=== PATIENT | male | born 1940 | race Caucasian/White ===

== ENCOUNTER → 2019-01-24 | Outpatient (CLI) | payer MEDICARE ==
--- NOTE | 2019-01-24 09:39 | XR ---
EXAMINATION TYPE: XR chest 2V DATE OF EXAM: 01/24/2019 COMPARISON: NONE TECHNIQUE: PA and lateral views submitted. HISTORY: Cough and congestion FINDINGS: Subsegmental changes at the left lung base. No overt failure. No pneumothorax. No pleural effusion. H eart size normal. Degenerative change of the spine. Hyperinflation suggests COPD. IMPRESSION: 1. Left basilar infiltrate or atelectasis correlate clinically.
== END | disposition home or self-care (01) ==
LOC: RADXRMAIN 08:58
PROVIDERS: ATTEND Family Medicine
DX: J20.9 Acute bronchitis, unspecified (principal)
CPT/HCPCS: 71046

== ENCOUNTER 2020-04-26 09:02 | Emergency (ER) | payer MEDICARE ==
[2020-04-26 09:13] VITALS: RESP 18; TEMP 98.3
[2020-04-26] MEDS ORDERED: DICYCLOMINE 10 MG/ML 2 ML AMP IM STA (09:27)
[2020-04-26] MEDS ORDERED: PANTOPRAZOLE 40 MG/10 ML VIAL IVP STA (09:27)
[2020-04-26 09:43] LABS: Basophils % (A) 1 %; Eosinophils # (A) 0.1 k/uL (0-0.7); Eosinophils % (A) 2 %; HCT 48.1 % (39.0-53.0); HGB 16.3 gm/dL (13.0-17.5); Lymphocytes # (A) 1.9 k/uL (1.0-4.8); Lymphocytes % (A) 26 %; MCH 30.9 pg (25.0-35.0); MCHC 33.8 g/dL (31.0-37.0); MCV 91.3 fL (80.0-100.0); Mean Platelet Volume 7.2; Monocytes # (A) 0.5 k/uL (0-1.0); Monocytes % (A) 7 %; Neutrophils # (A) 4.7 k/uL (1.3-7.7); Neutrophils % (A) 63 %; Platelet Count 238 k/uL (150-450); RBC 5.27 m/uL (4.30-5.90); RDW 12.7 % (11.5-15.5); WBC 7.5 k/uL (3.8-10.6)
[2020-04-26 09:52] LABS: ALT 25 U/L (4-49); AST 28 U/L (17-59); African American GFR (CKD) >90 (>60 ml/min/1.73 sqM); Albumin 4.4 g/dL (3.5-5.0); Alkaline Phosphatase 68 U/L (38-126); Amylase 34 U/L (30-110); Anion Gap 10 mmol/L; Blood Urea Nitrogen 15 mg/dL (9-20); Calcium 9.5 mg/dL (8.4-10.2); Carbon Dioxide 23 mmol/L (22-30); Chloride 108 mmol/L (98-107); Glucose 118 mg/dL (74-99); Lipase 41 U/L (23-300); Non-African American GFR(CKD) 81 (>60 ml/min/1.73 sqM); Potassium 4.1 mmol/L (3.5-5.1); Sodium 141 mmol/L (137-145); Total Bilirubin 0.9 mg/dL (0.2-1.3); Total Protein 7.7 g/dL (6.3-8.2)
[2020-04-26 09:54] LABS: Appearance,Urine Clear (Clear); Bilirubin,Urine Negative (Negative); Blood,Urine Negative (Negative); Color,Urine Yellow; Glucose,Urine (UA) Negative (Negative); Ketones,Urine Negative (Negative); Leukocyte Esterase,Urine Negative (Negative); Nitrite,Urine Negative (Negative); PH, Urine 6.5 (5.0-8.0); Protein,Urine Negative (Negative); Specific Gravity,Urine 1.013 (1.001-1.035); Urobilinogen,Urine <2.0 mg/dL (<2.0)
[2020-04-26 09:55] LABS: INR 1.1 (<1.2); Partial Thromboplastin Time 23.2 sec (22.0-30.0); Prothrombin Time 11.5 sec (9.0-12.0)
[2020-04-26 10:38] VITALS: BP 126/76
--- NOTE | 2020-04-26 10:38 | CT ---
EXAMINATION TYPE: CT abdomen pelvis w con DATE OF EXAM: 04/26/2020 COMPARISON: None. HISTORY: Left sided abdominal pain on and off x [address] DLP: 1201.3 mGycm, Automated Exposure Control for Dose Reduction was Utilized. CONTRAST: CT scan of the abdomen and pelvis is performed without oral but with IV Contrast, patient injected wi th 100 mL of Isovue 300. FINDINGS: LUNG BASES: Some calcified plaques in the bilateral lungs are present. Correlate clinically for prior asbestos exposure. Dependent atelectasis in both bases. Mild additional linear scarring and/or atele ctasis. Slightly elevated left hemidiaphragm. LIVER/GB: Liver heterogeneously hypodense suggesting mild diffuse fatty relation. A 1.3 cm thin-yarely d cysts left hepatic dome axial image 20 is noted. PANCREAS: No significant abnormality is seen. SPLEEN: No significant abnormality is seen. ADRENALS: No significant abnormality is seen. KIDNEYS: Symmetric cortical medullary uptake and excretion without hydronephrosis seen bilaterally. BOWEL: Suboptimal evaluation of bowel without enteric contrast. Stomach poorly distended and is thus suboptimally evaluated. No suspicious small or large bowel dilatation. Prominent diverticula on the l eft and sigmoid colon. Mild focal fat stranding left lower quadrant axial image 62 anteriorly. Findin g consistent with mild uncomplicated acute diverticulitis. PROSTATE/SEMINAL VESICLES: Enlarged prostate gland consistent with BPH. Central calcifications. [place] cent scattered pelvic phleboliths.. LYMPH NODES: No greater than 1cm abdominal or pelvic lymph nodes are appreciated. OSSEOUS STRUCTURES: Moderate disc space narrowing and vacuum disc phenomenon at lumbosacral junction. Mild to moderate axial joint space loss both hips. OTHER: Small fat-containing bilateral inguinal hernias. Mild calcified plaque distal abdominal aorta extending into iliac branch vessels. IMPRESSION: Prominent diverticulosis left and sigmoid colon. Mild focal uncomplicated acute diverticu litis at junction of left and sigmoid colon left lower quadrant anteriorly.
[2020-04-26 10:50] VITALS: PULSE 62
--- NOTE | 2020-04-26 10:53 | ED ---
General Adult HPI - General Chief complaint: Abdominal Pain Stated complaint: L Side Abd Pain Time Seen by Provider: 04/26/20 09:14 Source: patient, RN notes reviewed Mode of arrival: wheelchair Limitations: no limitations - History of Present Illness Initial comments: Patient is a pleasant 79-year-old male presenting to the emergency Department with complaints of abdominal discomfort. Onset of symptoms was several months ago, discomfort was much worse this morning. Discomfort does increase somewhat with positional changes. No nausea vomiting. No constipation or diarrhea. No fever. No history of symptoms prior to a few months ago. - Related Data Previous Rx's Medication Instructions Recorded Amoxic-Pot Clav 875-125Mg 1 tab PO BID 10 Days #20 tab 04/26/20 [Augmentin 875-125] Allergies Allergy/AdvReac Type Severity Reaction Status Date / Time No Known Allergies Allergy Verified 04/26/20 09:45 Review of Systems ROS Statement: Those systems with pertinent positive or pertinent negative responses have been documented in the HPI. ROS Other: All systems not noted in ROS Statement are negative. Constitutional: Denies: fever Eyes: Denies: eye pain ENT: Denies: ear pain Respiratory: Denies: cough Cardiovascular: Denies: chest pain Endocrine: Denies: fatigue Gastrointestinal: Reports: abdominal pain. Denies: nausea, vomiting Genitourinary: Denies: urgency Musculoskeletal: Denies: back pain Skin: Denies: rash Neurological: Denies: weakness Past Medical History Past Medical History: No Reported History History of Any Multi-Drug Resistant Organisms: None Reported Past Surgical History: No Surgical Hx Reported Additional Past Surgical History / Comment(s): vasectomy, last colonoscopy was 5 years ago without polyps. Past Anesthesia/Blood Transfusion Reactions: No Reported Reaction Past Psychological History: No Psychological Hx Reported Smoking Status: Former smoker Past Alcohol Use History: Occasional Past Drug Use History: None Reported - Past Family History Father Additional Family Medical History / Comment(s): Father at 47 when the patient was young of an unknown cause to him. Mother Additional Family Medical History / Comment(s): Mother in her 40s from complications of a urinary tract infection Brother(s) Additional Family Medical History / Comment(s): Patient had 8 brothers and 3 have passed. One from asbestos poisoning, one from an abdominal problem at age 86. One brother that is alive has a pacemaker. Sister(s) Additional Family Medical History / Comment(s): Patient had 3 sisters and one has passed. One sister that is alive has a pacemaker. Daughter(s) Additional Family Medical History / Comment(s): Patient has one daughter that is 47 years old with no major medical problems. General Exam Limitations: no limitations General appearance: alert, in no apparent distress Head exam: Present: normocephalic Eye exam: Present: normal appearance Neck exam: Present: normal inspection Respiratory exam: Present: normal lung sounds bilaterally Cardiovascular Exam: Present: regular rate, normal rhythm Expanded Peripheral pulses: 2+: Posterior Tibialis (R), Posterior Tibialis (L), Dorsalis Pedis (R), Dorsalis Pedis (L) GI/Abdominal exam: Present: soft, tenderness (Mild tenderness left lower quadrant), normal bowel sounds. Absent: distended, guarding, rebound, rigid, pulsatile mass Extremities exam: Present: normal inspection. Absent: pedal edema, calf tenderness Back exam: Absent: CVA tenderness (L) Neurological exam: Present: alert Psychiatric exam: Present: normal affect, normal mood Skin exam: Present: normal color Course Vital Signs 04/26/20 04/26/20 09:09 10:36 Temperature 98.3 F 98.3 F Pulse Rate 56 L 620 H Respiratory 18 18 Rate Blood Pressure 146/71 126/76 O2 Sat by Pulse 97 97 Oximetry Medical Decision Making - Medical Decision Making Patient reevaluated and resting comfortably in bed. Symptoms have improved. Patient updated on results and need for follow-up. Patient states she does have history of diverticulitis once previously. - Lab Data Result diagrams: 04/26/20 09:35 04/26/20 09:35 Lab Results 04/26/20 04/26/20 04/26/20 Range/Units 09:35 09:35 09:35 WBC 7.5 (3.8-10.6) k/uL RBC 5.27 (4.30-5.90) m/uL Hgb 16.3 (13.0-17.5) gm/dL Hct 48.1 (39.0-53.0) % MCV 91.3 (80.0-100.0) fL MCH 30.9 (25.0-35.0) pg MCHC 33.8 (31.0-37.0) g/dL RDW 12.7 (11.5-15.5) % Plt Count 238 (150-450) k/uL MPV 7.2 Neutrophils % 63 % Lymphocytes % 26 % Monocytes % 7 % Eosinophils % 2 % Basophils % 1 % Neutrophils # 4.7 (1.3-7.7) k/uL Lymphocytes # 1.9 (1.0-4.8) k/uL Monocytes # 0.5 (0-1.0) k/uL Eosinophils # 0.1 (0-0.7) k/uL Basophils # 0.0 (0-0.2) k/uL PT (9.0-12.0) sec INR (<1.2) APTT (22.0-30.0) sec Sodium 141 (137-145) mmol/L Potassium 4.1 (3.5-5.1) mmol/L Chloride 108 H (98-107) mmol/L Carbon Dioxide 23 (22-30) mmol/L Anion Gap 10 mmol/L BUN 15 (9-20) mg/dL Creatinine 0.89 (0.66-1.25) mg/dL Est GFR (CKD-EPI)AfAm >90 (>60 ml/min/1.73 sqM) Est GFR (CKD-EPI)NonAf 81 (>60 ml/min/1.73 sqM) Glucose 118 H (74-99) mg/dL Calcium 9.5 (8.4-10.2) mg/dL Total Bilirubin 0.9 (0.2-1.3) mg/dL AST 28 (17-59) U/L ALT 25 (4-49) U/L Alkaline Phosphatase 68 (38-126) U/L Total Protein 7.7 (6.3-8.2) g/dL Albumin 4.4 (3.5-5.0) g/dL Amylase 34 (30-110) U/L Lipase 41 (23-300) U/L Urine Color Yellow Urine Appearance Clear (Clear) Urine pH 6.5 (5.0-8.0) Ur Specific [place] 1.013 (1.001-1.035) Urine Protein Negative (Negative) Urine Glucose (UA) Negative (Negative) Urine Ketones Negative (Negative) Urine Blood Negative (Negative) Urine Nitrite Negative (Negative) Urine Bilirubin Negative (Negative) Urine Urobilinogen <2.0 (<2.0) mg/dL Ur Leukocyte Esterase Negative (Negative) 04/26/20 Range/Units 09:35 WBC (3.8-10.6) k/uL RBC (4.30-5.90) m/uL Hgb (13.0-17.5) gm/dL Hct (39.0-53.0) % MCV (80.0-100.0) fL MCH (25.0-35.0) pg MCHC (31.0-37.0) g/dL RDW (11.5-15.5) % Plt Count (150-450) k/uL MPV Neutrophils % % Lymphocytes % % Monocytes % % Eosinophils % % Basophils % % Neutrophils # (1.3-7.7) k/uL Lymphocytes # (1.0-4.8) k/uL Monocytes # (0-1.0) k/uL Eosinophils # (0-0.7) k/uL Basophils # (0-0.2) k/uL PT 11.5 (9.0-12.0) sec INR 1.1 (<1.2) APTT 23.2 (22.0-30.0) sec Sodium (137-145) mmol/L Potassium (3.5-5.1) mmol/L Chloride (98-107) mmol/L Carbon Dioxide (22-30) mmol/L Anion Gap mmol/L BUN (9-20) mg/dL Creatinine (0.66-1.25) mg/dL Est GFR (CKD-EPI)AfAm (>60 ml/min/1.73 sqM) Est GFR (CKD-EPI)NonAf (>60 ml/min/1.73 sqM) Glucose (74-99) mg/dL Calcium (8.4-10.2) mg/dL Total Bilirubin (0.2-1.3) mg/dL AST (17-59) U/L ALT (4-49) U/L Alkaline Phosphatase (38-126) U/L Total Protein (6.3-8.2) g/dL Albumin (3.5-5.0) g/dL Amylase (30-110) U/L Lipase (23-300) U/L Urine Color Urine Appearance (Clear) Urine pH (5.0-8.0) Ur Specific [place] (1.001-1.035) Urine Protein (Negative) Urine Glucose (UA) (Negative) Urine Ketones (Negative) Urine Blood (Negative) Urine Nitrite (Negative) Urine Bilirubin (Negative) Urine Urobilinogen (<2.0) mg/dL Ur Leukocyte Esterase (Negative) - Radiology Data Radiology results: report reviewed (Computed tomography scan shows mild acute diverticulitis) Disposition Clinical Impression: Diverticulitis Disposition: HOME SELF-CARE Condition: Stable Instructions (If sedation given, give patient instructions): Diverticulitis (ED) Additional Instructions: Please follow-up with primary care physician in the next couple of days for recheck. Return for fevers, uncontrolled vomiting, increased pain, worsening or changing symptoms or other concerns. Prescription for antibiotics has been sent your pharmacy, please fill and start this today. Raj on . Prescriptions: Amoxic-Pot Clav 875-125Mg [Augmentin 875-125] 1 tab PO BID 10 Days #20 tab Is patient prescribed a controlled substance at d/c from ED?: No Referrals: Hamilton Long DO [Primary Care Provider] - 1-2 days Time of Disposition: 10:52
== END 2020-04-26 11:00 | disposition home or self-care (01) ==
LOC: EC 09:02
DX: K57.32 Diverticulitis of large intestine without perforation or abscess without bleeding (principal); Z87.891 Personal history of nicotine dependence
CPT/HCPCS: 36415; 80053; 82150; 83690; 85025; 85610; 85730; 81003; 74177; 99284; 96372; 96374; J0500; C9113; Q9967

== ENCOUNTER 2021-12-14 23:32 | Emergency (ER) | payer MEDICARE ==
[2021-12-15] VITALS: RESP 18; TEMP 98.2
[2021-12-15] MEDS ORDERED: ONDANSETRON 4 MG/2 ML VIAL IVP STA (00:01)
[2021-12-15] MEDS ORDERED: ASPIRIN 81 MG PO STA (00:01)
[2021-12-15] MEDS ORDERED: SODIUM CHLORIDE 0.9% 1,000 ML IV STA (00:01)
[2021-12-15] MEDS ORDERED: MAG HYDROX/AL HYDROX/SIMETH 30 ML, HYOSCYAMINE ELIXIR 10 ML, LIDOCAINE VISCOUS 2% 10 ML PO STA ×3 (00:02)
--- NOTE | 2021-12-15 00:32 | ED ---
General Adult HPI - General Chief complaint: Chest Pain Stated complaint: Chest pain Time Seen by Provider: 12/14/21 23:57 Source: patient, RN notes reviewed, old records reviewed Mode of arrival: EMS Limitations: no limitations - History of Present Illness Initial comments: Patient is an 81-year-old male with past medical history remarkable for acid re flux who presents emergency Department complaining of a lower substernal chest burning sensation and epigastric pain. States he has had this pain previously. It became worse this evening when he lay down flat. States it improved when he sat up. It started approximately 2 hours prior to arrival. Denies any nausea. Denies any diarrhea. Denies any fevers, chills, cough. Denies any shortness of breath. Denies any upper chest pain. Patient is uncertain what is causing the current pain, but suspects his acid reflux. Presents for further evaluation at this time. No history cardiac disease, stents. Not on any home medications. States the pain is improved compared to earlier. - Related Data Previous Rx's Medication Instructions Recorded Amoxic-Pot Clav 875-125Mg 1 tab PO BID 10 Days #20 tab 04/26/20 [Augmentin 875-125] Mag Hydrox/Al Hydrox/Simeth 30 ml PO BID PRN #300 ml 12/15/21 [Maalox] Allergies Allergy/AdvReac Type Severity Reaction Status Date / Time No Known Allergies Allergy Verified 04/26/20 09:45 Review of Systems ROS Statement: Those systems with pertinent positive or pertinent negative responses have been documented in the HPI. Review of Systems: CONST: Denies fever EYES: Denies blurry vision ENT: Denies nasal congestion C/V: Endorses low substernal chest pain/epigastric pain. RESP: Denies shortness of breath GI: Endorses epigastric abdominal pain. : Denies dysuria SKIN: Denies rash. MSK: Denies joint pain. NEURO: Denies headache ROS Other: All systems not noted in ROS Statement are negative. Past Medical History Past Medical History: No Reported History History of Any Multi-Drug Resistant Organisms: None Reported Past Surgical History: No Surgical Hx Reported Additional Past Surgical History / Comment(s): vasectomy, last colonoscopy was 5 years ago without polyps. Past Anesthesia/Blood Transfusion Reactions: No Reported Reaction Past Psychological History: No Psychological Hx Reported Smoking Status: Former smoker Past Alcohol Use History: Occasional Past Drug Use History: None Reported - Past Family History Father Additional Family Medical History / Comment(s): Father at 47 when the patient was young of an unknown cause to him. Mother Additional Family Medical History / Comment(s): Mother in her 40s from complications of a urinary tract infection Brother(s) Additional Family Medical History / Comment(s): Patient had 8 brothers and 3 have passed. One from asbestos poisoning, one from an abdominal problem at age 86. One brother that is alive has a pacemaker. Sister(s) Additional Family Medical History / Comment(s): Patient had 3 sisters and one has passed. One sister that is alive has a pacemaker. Daughter(s) Additional Family Medical History / Comment(s): Patient has one daughter that is 47 years old with no major medical problems. General Exam - General Exam Comments Initial Comments: General: Appears in no acute distress. HEAD: Normal with no signs of head trauma. EYES: PERRLA, EOMI, conjunctiva normal, no discharge. ENT: Hearing grossly intact, normal oropharynx. RESPIRATORY: Clear breath sounds bilaterally. No wheezes, rales, or rhonchi. C/V: Regular rate and rhythm. S1 and S2 auscultated, no edema, peripheral pulses 2+ and intact throughout ABD: The pain patient is experiencing is reproduced when palpating his epig astric pain. No guarding. No rebound tenderness. No peritoneal signs. EXT: Normal range of motion, no obvious deformity SKIN: No rashes or lesions observed on exposed skin. NEURO: Alert and oriented 4. Limitations: no limitations Course Vital Signs 12/14/21 12/15/21 23:54 03:32 Temperature 98.2 F Pulse Rate 52 L 60 Respiratory 18 18 Rate Blood Pressure 143/70 150/86 O2 Sat by Pulse 95 96 Oximetry Medical Decision Making - Medical Decision Making Based on the patient's presentation and physical exam, I'm concerned for possible atypical ACS, however strong suspect this is acid reflux related with his past medical history. We'll obtain screening cardiac labs. We'll administer GI cocktail as well as an aspirin 324mg. He'll be given IV fluids. He was in agreement this plan. Vital signs are within normal limits. We'll continue to monitor on cardiac monitoring. EKG shows no signs of acute ischemia.Chest x-ray shows no acute cardio pulmonary process. Laboratory studies are remarkable for an undetectable troponin. Remainder of the labs are unremarkable. They're within normal limits. On reevaluation, vital signs remained within normal limits. Patient's symptoms completely resolved with the GI cocktail. He would like to go home. I believe this is reasonable. Heart score is low at 3. We discussed that his pain was likely related to his history of acid reflux. I will provide the patient with a prescription for Maalox. I instructed the patient to follow up with their PCP in the next 1-3 days. I explained that the patient should return to the emergency department if they experience any worsening symptoms. Strict return precautions were discussed with the patient. The patient expressed understanding of these instructions. I answered all questions that the patient had. The patient was discharged home in good condition with their prescriptions and follow up information. - Lab Data Result diagrams: 12/15/21 00:31 12/15/21 00:31 Lab Results 12/15/21 12/15/21 12/15/21 Range/Units 00:31 00:31 00:31 WBC 6.2 (3.8-10.6) k/uL RBC 4.71 (4.30-5.90) m/uL Hgb 14.3 (13.0-17.5) gm/dL Hct 43.0 (39.0-53.0) % MCV 91.2 (80.0-100.0) fL MCH 30.4 (25.0-35.0) pg MCHC 33.4 (31.0-37.0) g/dL RDW 12.3 (11.5-15.5) % Plt Count 218 (150-450) k/uL MPV 7.4 Neutrophils % 52 % Lymphocytes % 30 % Monocytes % 10 % Eosinophils % 3 % Basophils % 2 % Neutrophils # 3.2 (1.3-7.7) k/uL Lymphocytes # 1.9 (1.0-4.8) k/uL Monocytes # 0.6 (0-1.0) k/uL Eosinophils # 0.2 (0-0.7) k/uL Basophils # 0.1 (0-0.2) k/uL PT 11.7 (9.0-12.0) sec INR 1.1 (<1.2) APTT 24.8 (22.0-30.0) sec Sodium 138 (137-145) mmol/L Potassium 3.8 (3.5-5.1) mmol/L Chloride 107 (98-107) mmol/L Carbon Dioxide 22 (22-30) mmol/L Anion Gap 9 mmol/L BUN 13 (9-20) mg/dL Creatinine 0.88 (0.66-1.25) mg/dL Est GFR (CKD-EPI)AfAm >90 (>60 ml/min/1.73 sqM) Est GFR (CKD-EPI)NonAf 80 (>60 ml/min/1.73 sqM) Glucose 106 H (74-99) mg/dL Calcium 8.6 (8.4-10.2) mg/dL Magnesium 1.6 (1.6-2.3) mg/dL Total Bilirubin 0.3 (0.2-1.3) mg/dL AST 20 (17-59) U/L ALT 10 (4-49) U/L Alkaline Phosphatase 83 (38-126) U/L Troponin I (0.000-0.034) ng/mL Total Protein 6.9 (6.3-8.2) g/dL Albumin 3.9 (3.5-5.0) g/dL Amylase 36 (30-110) U/L Lipase 40 (23-300) U/L 12/15/21 Range/Units 00:31 WBC (3.8-10.6) k/uL RBC (4.30-5.90) m/uL Hgb (13.0-17.5) gm/dL Hct (39.0-53.0) % MCV (80.0-100.0) fL MCH (25.0-35.0) pg MCHC (31.0-37.0) g/dL RDW (11.5-15.5) % Plt Count (150-450) k/uL MPV Neutrophils % % Lymphocytes % % Monocytes % % Eosinophils % % Basophils % % Neutrophils # (1.3-7.7) k/uL Lymphocytes # (1.0-4.8) k/uL Monocytes # (0-1.0) k/uL Eosinophils # (0-0.7) k/uL Basophils # (0-0.2) k/uL PT (9.0-12.0) sec INR (<1.2) APTT (22.0-30.0) sec Sodium (137-145) mmol/L Potassium (3.5-5.1) mmol/L Chloride (98-107) mmol/L Carbon Dioxide (22-30) mmol/L Anion Gap mmol/L BUN (9-20) mg/dL Creatinine (0.66-1.25) mg/dL Est GFR (CKD-EPI)AfAm (>60 ml/min/1.73 sqM) Est GFR (CKD-EPI)NonAf (>60 ml/min/1.73 sqM) Glucose (74-99) mg/dL Calcium (8.4-10.2) mg/dL Magnesium (1.6-2.3) mg/dL Total Bilirubin (0.2-1.3) mg/dL AST (17-59) U/L ALT (4-49) U/L Alkaline Phosphatase (38-126) U/L Troponin I <0.012 (0.000-0.034) ng/mL Total Protein (6.3-8.2) g/dL Albumin (3.5-5.0) g/dL Amylase (30-110) U/L Lipase (23-300) U/L - EKG Data -: EKG Interpreted by Me EKG Comments: 12-lead Electrocardiogram Interpretation Note EKG was reviewed and interpreted by myself. 12-lead ECG performed at 0007 is interpreted by me as revealing sinus bradycardia at a rate of 52 beats per minute. Taylors is normal. DC interval is 234 ms and prolonged, QRS duration is 87 ms, QTc is 442 ms.. There were no acute ST or T wave abnormalities to suggest myocardial ischemia or injury. There is an isolated T-wave inversion in lead III. R wave progression across the precordium was satisfactory. By my interpretation this EKG is non-diagnostic for acute ischemia. Disposition Clinical Impression: Acid reflux, Atypical chest pain Disposition: HOME SELF-CARE Condition: Good Instructions (If sedation given, give patient instructions): Chest Pain (ED), GERD (Gastroesophageal Reflux Disease) in Children (ED) Prescriptions: Mag Hydrox/Al Hydrox/Simeth [Maalox] 30 ml PO BID PRN #300 ml PRN Reason: Dyspepsia Is patient prescribed a controlled substance at d/c from ED?: No Referrals: [place], DO [Primary Care Provider] - 1-2 days Time of Disposition: 02:25
[2021-12-15 00:47] LABS: Basophils # (A) 0.1 k/uL (0-0.2); Basophils % (A) 2 %; Eosinophils # (A) 0.2 k/uL (0-0.7); Eosinophils % (A) 3 %; HGB 14.3 gm/dL (13.0-17.5); Lymphocytes # (A) 1.9 k/uL (1.0-4.8); Lymphocytes % (A) 30 %; MCH 30.4 pg (25.0-35.0); MCHC 33.4 g/dL (31.0-37.0); MCV 91.2 fL (80.0-100.0); Mean Platelet Volume 7.4; Monocytes # (A) 0.6 k/uL (0-1.0); Monocytes % (A) 10 %; Neutrophils # (A) 3.2 k/uL (1.3-7.7); Neutrophils % (A) 52 %; Platelet Count 218 k/uL (150-450); RBC 4.71 m/uL (4.30-5.90); RDW 12.3 % (11.5-15.5); WBC 6.2 k/uL (3.8-10.6)
[2021-12-15 00:57] LABS: INR 1.1 (<1.2); Partial Thromboplastin Time 24.8 sec (22.0-30.0); Prothrombin Time 11.7 sec (9.0-12.0)
[2021-12-15 01:22] LABS: ALT 10 U/L (4-49); AST 20 U/L (17-59); African American GFR (CKD) >90 (>60 ml/min/1.73 sqM); Albumin 3.9 g/dL (3.5-5.0); Alkaline Phosphatase 83 U/L (38-126); Amylase 36 U/L (30-110); Anion Gap 9 mmol/L; Blood Urea Nitrogen 13 mg/dL (9-20); Calcium 8.6 mg/dL (8.4-10.2); Carbon Dioxide 22 mmol/L (22-30); Chloride 107 mmol/L (98-107); Glucose 106 mg/dL (74-99); Lipase 40 U/L (23-300); Magnesium 1.6 mg/dL (1.6-2.3); Non-African American GFR(CKD) 80 (>60 ml/min/1.73 sqM); Potassium 3.8 mmol/L (3.5-5.1); Sodium 138 mmol/L (137-145); Total Bilirubin 0.3 mg/dL (0.2-1.3); Total Protein 6.9 g/dL (6.3-8.2)
--- NOTE | 2021-12-15 02:02 | XR ---
EXAMINATION TYPE: XR chest 2V DATE OF EXAM: 12/15/2021 COMPARISON: NONE HISTORY: Chest pain TECHNIQUE: 2 views FINDINGS: Heart is normal. Lungs are clear of infiltrate. No pleural effusion. There are no hilar mas ses. Costophrenic angles are clear. There is some minimal reticular density in the lower lung latif that could be scarring. No heart failure. IMPRESSION: No active cardiopulmonary disease. Normal heart. Overall no adverse change compared to ol d exam.
[2021-12-15 03:33] VITALS: BP 150/86; PULSE 60
== END 2021-12-15 03:33 | disposition home or self-care (01) ==
LOC: EC 23:32
DX: K21.9 Gastro-esophageal reflux disease without esophagitis (principal); Z87.891 Personal history of nicotine dependence
CPT/HCPCS: 36415; 93005; 80053; 82150; 83690; 83735; 84484; 85025; 85610; 85730; 71046; 99285; 96374; 96361; J2405

== ENCOUNTER 2023-08-12 13:40 | Emergency (ER) | payer MEDICARE ==
--- NOTE | 2023-08-12 13:47 | ED ---
Neuro HPI - General Chief Complaint: Neuro Symptoms/Deficit Stated Complaint: AMS Time Seen by Provider: 08/12/23 13:45 Source: patient, RN notes reviewed, old records reviewed Mode of arrival: ambulatory Limitations: no limitations - History of Present Illness Is the patient presenting with stroke symptoms?: Yes -: hour(s) Initial Comments: This is a 83-year-old male who presents with symptoms of inability to speak. Patient is unable to provide any current history of current symptoms. Patient has difficulty both expressing and receiving information he was able to write on a piece of paper that he started noticing the symptoms around 11 Location: speech, dysarthria History of same: No Place: home Severity: severe Improves With: none Worsens With: none Context: sudden onset Associated Symptoms: confusion - Related Data Home Medications: Home Medications Medication Instructions Recorded Confirmed No Known Home Medications 08/12/23 08/12/23 Allergies/Adverse Reactions: Allergies Allergy/AdvReac Type Severity Reaction Status Date / Time No Known Allergies Allergy Verified 08/12/23 14:29 Review of Systems ROS Statement: Those systems with pertinent positive or pertinent negative responses have been documented in the HPI. ROS Other: All systems not noted in ROS Statement are negative. General Exam - General Exam Comments Initial Comments: Patient has significant expressive aphasia and receptive Limitations: no limitations General appearance: alert, in no apparent distress Head exam: Present: atraumatic, normocephalic, normal inspection Eye exam: Present: normal appearance, PERRL, EOMI. Absent: scleral icterus, conjunctival injection, periorbital swelling ENT exam: Present: normal exam, mucous membranes moist Neck exam: Present: normal inspection. Absent: tenderness, meningismus, lymphadenopathy Respiratory exam: Present: normal lung sounds bilaterally. Absent: respiratory distress, wheezes, rales, rhonchi, stridor Cardiovascular Exam: Present: regular rate, normal rhythm, normal heart sounds. Absent: systolic murmur, diastolic murmur, rubs, gallop, clicks GI/Abdominal exam: Present: soft, normal bowel sounds. Absent: distended, tenderness, guarding, rebound, rigid Extremities exam: Present: normal inspection, full ROM, normal capillary refill. Absent: tenderness, pedal edema, joint swelling, calf tenderness Back exam: Present: normal inspection Neurological exam: Present: alert, oriented X3, CN II-XII intact Psychiatric exam: Present: normal affect, normal mood Skin exam: Present: warm, dry, intact, normal color. Absent: rash Stroke MDM - Lab Data Result diagrams: 08/12/23 13:57 08/12/23 13:57 Lab Results 08/12/23 08/12/23 08/12/23 Range/Units 13:48 13:57 13:57 WBC 7.9 (3.8-10.6) k/uL RBC 4.69 (4.30-5.90) m/uL Hgb 14.4 (13.0-17.5) gm/dL Hct 43.0 (39.0-53.0) % MCV 91.8 (80.0-100.0) fL MCH 30.7 (25.0-35.0) pg MCHC 33.5 (31.0-37.0) g/dL RDW 12.5 (11.5-15.5) % Plt Count 275 (150-450) k/uL MPV 7.5 Neutrophils % 62 % Lymphocytes % 25 % Monocytes % 9 % Eosinophils % 1 % Basophils % 1 % Neutrophils # 4.9 (1.3-7.7) k/uL Lymphocytes # 2.0 (1.0-4.8) k/uL Monocytes # 0.7 (0-1.0) k/uL Eosinophils # 0.1 (0-0.7) k/uL Basophils # 0.1 (0-0.2) k/uL PT 11.8 (10.0-12.5) sec INR 1.1 (<1.2) APTT 24.5 (22.0-30.0) sec Sodium (137-145) mmol/L Potassium (3.5-5.1) mmol/L Chloride (98-107) mmol/L Carbon Dioxide (22-30) mmol/L Anion Gap mmol/L BUN (9-20) mg/dL Creatinine (0.66-1.25) mg/dL Est GFR (CKD-EPI)AfAm (>60 ml/min/1.73 sqM) Est GFR (CKD-EPI)NonAf (>60 ml/min/1.73 sqM) Glucose (74-99) mg/dL POC Glucose (mg/dL) 108 (70-110) mg/dL POC Glu [employer] Operations Officer ID Rothman, [place] Calcium (8.4-10.2) mg/dL Total Bilirubin (0.2-1.3) mg/dL AST (17-59) U/L ALT (4-49) U/L Alkaline Phosphatase (38-126) U/L Creatine Kinase (55-170) U/L Troponin I (0.000-0.034) ng/mL Total Protein (6.3-8.2) g/dL Albumin (3.5-5.0) g/dL 08/12/23 08/12/23 Range/Units 13:57 13:57 WBC (3.8-10.6) k/uL RBC (4.30-5.90) m/uL Hgb (13.0-17.5) gm/dL Hct (39.0-53.0) % MCV (80.0-100.0) fL MCH (25.0-35.0) pg MCHC (31.0-37.0) g/dL RDW (11.5-15.5) % Plt Count (150-450) k/uL MPV Neutrophils % % Lymphocytes % % Monocytes % % Eosinophils % % Basophils % % Neutrophils # (1.3-7.7) k/uL Lymphocytes # (1.0-4.8) k/uL Monocytes # (0-1.0) k/uL Eosinophils # (0-0.7) k/uL Basophils # (0-0.2) k/uL PT (10.0-12.5) sec INR (<1.2) APTT (22.0-30.0) sec Sodium 140 (137-145) mmol/L Potassium 3.5 (3.5-5.1) mmol/L Chloride 108 H (98-107) mmol/L Carbon Dioxide 22 (22-30) mmol/L Anion Gap 10 mmol/L BUN 17 (9-20) mg/dL Creatinine 0.84 (0.66-1.25) mg/dL Est GFR (CKD-EPI)AfAm >90 (>60 ml/min/1.73 sqM) Est GFR (CKD-EPI)NonAf 81 (>60 ml/min/1.73 sqM) Glucose 120 H (74-99) mg/dL POC Glucose (mg/dL) (70-110) mg/dL POC Glu [employer] Officer ID Calcium 9.0 (8.4-10.2) mg/dL Total Bilirubin 0.8 (0.2-1.3) mg/dL AST 23 (17-59) U/L ALT 19 (4-49) U/L Alkaline Phosphatase 93 (38-126) U/L Creatine Kinase 89 (55-170) U/L Troponin I <0.012 (0.000-0.034) ng/mL Total Protein 7.3 (6.3-8.2) g/dL Albumin 4.2 (3.5-5.0) g/dL - NIH Stroke Scale 1b. LOC Questions: (2) answers no questions correctly 1c. LOC Commands: (0) performs tasks correctly 2. Best Gaze: (0) normal 3. Visual: (0) no visual loss 4. Facial Palsy: (0) normal symmetrical movement 5a. Motor Arm Left: (0) no drift 5b. Motor Arm Right: (0) no drift 6a. Motor Leg Left: (0) no drift 6b. Motor Leg Right: (0) no drift 7. Limb Ataxia: (0) absent 8. Sensory: (0) normal 9. Best Language: (2) severe aphasia 10. Dysarthria: (1) mild/moderate dysarthria 11. Extinction/Inattention: (0) no abnormality - Thrombolytic Inclusion/Exclusion Thrombolytic Inclusion Criteria: Symptom Onset < 4.5 h - Medical Decision Making 83 male transferred for inpatient neuro interventionalists, patient does have in tracerebral hemorrhage - Radiology Data Radiology results: report reviewed (CT brain is positive for left intraparenchymal hemorrhage), image reviewed - EKG Data -: EKG Interpreted by Me (EKG is sinus 64 AL 180 QRS 100 QTc 427) Past Medical History Past Medical History: No Reported History History of Any Multi-Drug Resistant Organisms: None Reported Past Surgical History: No Surgical Hx Reported Additional Past Surgical History / Comment(s): vasectomy, last colonoscopy was 5 years ago without polyps. Past Anesthesia/Blood Transfusion Reactions: No Reported Reaction Past Psychological History: No Psychological Hx Reported Smoking Status: Former smoker Past Alcohol Use History: Occasional Past Drug Use History: None Reported - Past Family History Father Additional Family Medical History / Comment(s): Father at 47 when the patient was young of an unknown cause to him. Mother Additional Family Medical History / Comment(s): Mother in her 40s from complications of a urinary tract infection Brother(s) Additional Family Medical History / Comment(s): Patient had 8 brothers and 3 have passed. One from asbestos poisoning, one from an abdominal problem at age 86. One brother that is alive has a pacemaker. Sister(s) Additional Family Medical History / Comment(s): Patient had 3 sisters and one has passed. One sister that is alive has a pacemaker. Daughter(s) Additional Family Medical History / Comment(s): Patient has one daughter that is 47 years old with no major medical problems. Course Vital Signs 08/12/23 08/12/23 08/12/23 13:41 13:48 14:12 Temperature 97.7 F Pulse Rate 69 71 76 Respiratory 16 18 16 Rate Blood Pressure 80/48 126/92 149/87 O2 Sat by Pulse 98 97 94 L Oximetry 08/12/23 08/12/23 08/12/23 14:15 14:30 14:45 Temperature Pulse Rate 69 82 70 Respiratory 18 18 18 Rate Blood Pressure 149/87 150/82 155/91 O2 Sat by Pulse 98 98 98 Oximetry 08/12/23 08/12/23 08/12/23 15:00 15:11 15:15 Temperature Pulse Rate 64 66 71 Respiratory 18 18 18 Rate Blood Pressure 143/76 144/91 143/92 O2 Sat by Pulse 98 97 98 Oximetry 08/12/23 15:28 Temperature 97.6 F Pulse Rate 68 Respiratory 18 Rate Blood Pressure 130/98 O2 Sat by Pulse 98 Oximetry - Reevaluation(s) Reevaluation #1: 08/12/23 14:29 Records reviewed Code thrombolytic paged on patient arrival Reevaluation #2: 08/12/23 14:30 Patient informed of results but unable to understand Reevaluation #3: 08/12/23 14:30 Patient has no change in symptoms here in the ER Reevaluation #4: Was pt. sent in by a medical professional or institution (, PA, [employer], urgent care, hospital, or usp...) When possible be specific @ -no Did you speak to anyone other than the patient for history (EMS, parent, family, police, friend...)? What history was obtained from this source @ -no Did you review nursing and triage notes (agree or disagree)? Why? @ -agree Are old charts reviewed (outside hosp., previous admission, EMS record, old EKG, old radiological studies, urgent care reports/EKG's, usp records)? Report findings @ -yes Differential Diagnosis (chest pain, altered mental status, abdominal pain women, abdominal pain men, vaginal bleeding, weakness, fever, dyspnea, syncope, headache, dizziness, GI bleed, back pain, seizure, CVA, palpatations, mental health, musculoskeletal)? @ -prior EKG interpreted by me (3pts min.). @ -yes X-rays interpreted by me (1pt min.). @ -yes negative for acute disease CT interpreted by me (1pt min.). @ -Yes positive for intracranial hemorrhage U/S interpreted by me (1pt. min.). @ -no What testing was considered but not performed or refused? (CT, X-rays, U/S, labs)? Why? @ -none What meds were considered but not given or refused? Why? @ -none Did you discuss the management of the patient with other professionals (professionals i.e. , PA, [employer], lab, RT, psych nurse, transition social worker, endless bed drum sander, teacher, plain clothes police officer, community case manager)? Give summary @ -no Was smoking cessation discussed for >3mins.? @ -no Was critical care preformed (if so, how long)? @ -yes31 Were there social determinants of health that impacted care today? How? (Homelessness, low income, unemployed, alcoholism, drug addiction, transportation, low edu. Level, literacy, decrease access to med. care, alf, r ehab)? @ -none Was there de-escalation of care discussed even if they declined (Discuss DNR or withdrawal of care, Hospice)? DNR status @ -no What co-morbidities impacted this encounter? (DM, HTN, Smoking, COPD, CAD, Cancer, CVA, ARF, Chemo, Hep., AIDS, mental health diagnosis, sleep apnea, morbid obesity)? @ -none Was patient admitted / discharged? Hospital course, mention meds given and route , prescriptions, significant lab abnormalities, going to OR and other pertinent info. @ - 83 male transferred for inpatient neuro interventionalists, patient does have intracerebral hemorrhage Transferred Admitted to inpatient Undiagnosed new problem with uncertain prognosis? @ -no Drug Therapy requiring intensive monitoring for toxicity (Heparin, Nitro, Insulin, Cardizem)? @ -no Were any procedures done? @ -no Diagnosis/symptom? @ -Intracranial hemorrhage Acute, or Chronic, or Acute on Chronic? @ -Acute Uncomplicated (without systemic symptoms) or Complicated (systemic symptoms)? @ -Complicated Side effects of treatment? @ -no Exacerbation, Progression, or Severe Exacerbation? @ -exacerbation Poses a threat to life or bodily function? How? (Chest pain, USA, ND, pneumonia, PE, COPD, DKA, ARF, appy, cholecystitis, CVA, Diverticulitis, Homicidal, Suicidal, threat to staff... and all critical care pts) @ -yes with significant intracranial hemorrhage Reevaluation #5: Differential CVA Ischemic stroke, hemorrhagic stroke, brain tumor, atypical migraine, Wernicke's encephalopathy, seizure, multiple sclerosis, meningitis, encephalitis, hypoglycemia, Guillain-Combs, electrolytes disturbance, myasthenia gravis.... This is not meant to be an all-inclusive list - Consultations Consultation #1: Spoke with neuro interventionalists, they accept transfer the patient Critical Care Time Critical Care Time: Yes Total Critical Care Time: 31 Disposition Clinical Impression: Intracranial hemorrhage, Intraparenchymal hemorrhage of brain, Left-sided intracerebral hemorrhage, Subarachnoid bleed Disposition: OTHER INSTITUTION NOT DEFINED Condition: Critical Is patient prescribed a controlled substance at d/c from ED?: No Referrals: Hamilton Long DO [Primary Care Provider] - 1-2 days Time of Disposition: 14:40 - Out of Hospital Transfer - Req. Specs Out of Hospital Transfer - Requested Specifics: Other Emergency Center ([facility])
[2023-08-12 13:49] LABS: Glucose,Whole Blood 108 mg/dL (70-110)
--- NOTE | 2023-08-12 14:20 | CT ---
EXAMINATION TYPE: CT brain wo con CT DLP: 1129.6 mGycm, Automated exposure control for dose reduction was used. DATE OF EXAM: 08/12/2023 2:13 PM COMPARISON: 09/03/2015. CLINICAL INDICATION:Male, 83 years old with history of Neuro deficit, acute, stroke suspected, diffic ulty with speech. neuro deficit TECHNIQUE: Brain: Axial CT images of the brain were obtained with coronal and sagittal reformats created and rev iewed. Contrast used: None. Oral contrast used: None. FINDINGS: Brain: Extra-axial spaces: Curvilinear fluid within the sulci within this region also present series 203 [id number] [id number]. Ventricular system: Within normal limits Cerebral parenchyma: Left posterior frontal/parietal/temporal intraparenchymal hemorrhage r measuring 31 x 21 x 24 mm. No acute intraparenchymal hemorrhage or mass effect. The jansen-white junction is we ll differentiated. Cerebellum: Unremarkable. Mass effect: No evidence of midline shift. Intracranial vasculature: unremarkable Soft tissues: Normal. Calvarium/osseous structures: No depressed skull fracture. Paranasal sinuses and mastoid air cells: Moderate mucosal thickening most proximal of the maxillary s inuses. Scattered paranasal sinus disease. Visualized orbits: Bilaterally aphakia. IMPRESSION: Acute left posterior frontal/parietal/temporal region intraparenchymal hemorrhage with trace subarach noid hemorrhage also visualized.. Findings communicated to Dr. Amadou Heath DO on 08/12/2023 2:[address] Nathan Alegria.
[2023-08-12 14:21] LABS: Basophils # (A) 0.1 k/uL (0-0.2); Basophils % (A) 1 %; Eosinophils # (A) 0.1 k/uL (0-0.7); Eosinophils % (A) 1 %; HGB 14.4 gm/dL (13.0-17.5); Lymphocytes % (A) 25 %; MCH 30.7 pg (25.0-35.0); MCHC 33.5 g/dL (31.0-37.0); MCV 91.8 fL (80.0-100.0); Mean Platelet Volume 7.5; Monocytes # (A) 0.7 k/uL (0-1.0); Monocytes % (A) 9 %; Neutrophils # (A) 4.9 k/uL (1.3-7.7); Neutrophils % (A) 62 %; Platelet Count 275 k/uL (150-450); RBC 4.69 m/uL (4.30-5.90); RDW 12.5 % (11.5-15.5); WBC 7.9 k/uL (3.8-10.6)
[2023-08-12] MEDS: T.ENECTEPLASE 5 MG/ML VIAL IVP STA (14:22)
[2023-08-12] MEDS: SODIUM CHLORIDE 0.9% 1,000 ML IV STA ×2 (14:25→14:26)
[2023-08-12 14:27] LABS: INR 1.1 (<1.2); Partial Thromboplastin Time 24.5 sec (22.0-30.0); Prothrombin Time 11.8 sec (10.0-12.5)
[2023-08-12 14:33] LABS: ALT 19 U/L (4-49); AST 23 U/L (17-59); African American GFR (CKD) >90 (>60 ml/min/1.73 sqM); Albumin 4.2 g/dL (3.5-5.0); Alkaline Phosphatase 93 U/L (38-126); Anion Gap 10 mmol/L; Blood Urea Nitrogen 17 mg/dL (9-20); Carbon Dioxide 22 mmol/L (22-30); Chloride 108 mmol/L (98-107); Creatine Kinase 89 U/L (55-170); Glucose 120 mg/dL (74-99); Non-African American GFR(CKD) 81 (>60 ml/min/1.73 sqM); Potassium 3.5 mmol/L (3.5-5.1); Sodium 140 mmol/L (137-145); Total Bilirubin 0.8 mg/dL (0.2-1.3); Total Protein 7.3 g/dL (6.3-8.2)
--- NOTE | 2023-08-12 14:44 | CT ---
EXAMINATION TYPE: CT angio head neck CT DLP: 533.9 mGycm, Automated exposure control for dose reduction was used. DATE OF EXAM: 08/12/2023 2:34 PM COMPARISON: None. CLINICAL INDICATION:Male, 83 years old with history of Neuro deficit, acute, stroke suspected; PHH, d ifficulty with speech. neuro deficit TECHNIQUE: Axially acquired helical CT angiogram of the head and neck was obtained with contrast. Axi al images are supplemented with 3D reconstructions and MIP images which were post-processed at an in dependent workstation. NASCET criteria used. Contrast used:65ml mL of Isovue 370 with IV Contrast, Oral contrast used: None. FINDINGS: CTA HEAD: No evidence of acute intracranial hemorrhage, mass effect, or midline shift. The ventricles, sulci, a nd cisterns are unremarkable. The visualized portions of the internal carotid arteries, middle cerebral arteries, anterior cerebral arteries, and posterior cerebral arteries are patent. Atherosclerosis of the intracranial internal c arotid arteries. The basilar and vertebral arteries are patent. CTA NECK: Right Carotid System: The common carotid artery and external carotid artery are patent. The carotid bifurcation demonstrate s no evidence of hemodynamically significant stenosis. The remaining portions of the internal carotid artery demonstrate normal size without significant narrowing. Left Carotid System: The common carotid artery and external carotid artery are patent. The carotid bifurcation demonstrate s no evidence of hemodynamically significant stenosis. The remaining portions of the internal carotid artery demonstrate normal size without significant narrowing. Vertebral arteries are patent without evidence hemodynamically significant stenosis. There is a three-vessel aortic arch. The origins of the great vessels are patent. No evidence of hemo dynamically significant stenosis. Upper thorax: IMPRESSION: 1. No evidence of dissection of the cervical internal carotid arteries or vertebral arteries or any e vidence of significant stenosis at the carotid bifurcations. 2. No evidence of intracranial high-grade stenosis or intracranial aneurysm.
[2023-08-12] MEDS: CLEVIDIPINE BUTYRATE 25 MG in EMPTY BAG 1 BAG IV SCH (15:07)
--- NOTE | 2023-08-12 15:08 | XR ---
EXAMINATION TYPE: XR chest 2V DATE OF EXAM: 08/12/2023 COMPARISON: NONE TECHNIQUE: PA and lateral views submitted. HISTORY: Altered mental status FINDINGS: The lungs are clear and there is no pneumothorax, pleural effusion, or focal pneumonia. Heart size normal and no overt failure. Osseous structures demonstrate hypertrophic and degenerative changes of the spine. Subsegmental changes involving the lung bases. Coarsened interstitium. Biapical pleural th ickening. Arthropathy of the shoulders. Limited inspiration. IMPRESSION: 1. Coarsened interstitial may be related to reduced inspiration. Correlate clinically to exclude a br onchitis and interstitial lung disease. 2. Left basilar atelectasis.
[2023-08-12 15:18] VITALS: RESP 18
[2023-08-12 15:59] VITALS: BP 130/98; PULSE 68; TEMP 97.6
== END 2023-08-12 15:30 | disposition other institution (70) ==
LOC: EC 13:40
DX: I61.9 Nontraumatic intracerebral hemorrhage, unspecified (principal); I63.9 Cerebral infarction, unspecified; Z87.891 Personal history of nicotine dependence
CPT/HCPCS: 99291 ×2; 96361 ×3; 96374; 96365; 36415; 93005; 80053; 82550; 84484; 85025; 85610; 85730; 71046; 70496; 70450; 70498; C9248; Q9967

== ENCOUNTER 2024-10-09 18:31 | Inpatient (IN) | payer MEDICARE ==
--- NOTE | 2024-10-09 19:14 | ED ---
General Adult HPI - General Source: patient, family, RN notes reviewed Mode of arrival: EMS Limitations: no limitations <Jerry Kerns - Last Filed: 10/09/24 21:48> <Florecita Oro - Last Filed: 10/10/24 06:18> - General Chief complaint: Back Pain/Injury Stated complaint: Back Pain Time Seen by Provider: 10/09/24 18:47 - History of Present Illness Initial comments: Patient is an 84-year-old male presents emergency department with concerns with back pain. Patient did have a fall a couple days ago. Patient did call EMS at the time however sent them away because he felt he was doing fine. Symptoms have worsened over the last couple of days. Discomfort increases with movement. Patient fell and landed on his lower back. Niece is present and also has concern for some increasing confusion. 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 Patient did not recall his name when EMS came out. (Jerry Kerns) - Related Data Home Medications Medication Instructions Recorded Confirmed No Known Home Medications 08/12/23 08/12/23 Allergies Allergy/AdvReac Type Severity Reaction Status Date / Time No Known Allergies Allergy Verified 10/09/24 18:45 Review of Systems ROS Other: All systems not noted in ROS Statement are negative. Constitutional: Denies: fever Eyes: Denies: eye pain ENT: Denies: ear pain Respiratory: Denies: dyspnea Cardiovascular: Denies: chest pain Gastrointestinal: Denies: abdominal pain Musculoskeletal: Reports: as per HPI, back pain Neurological: Reports: as per HPI, confusion. Denies: headache, weakness <Jerry Kerns - Last Filed: 10/09/24 21:48> ROS Other: All systems not noted in ROS Statement are negative. <Florecita Oro - Last Filed: 10/10/24 06:18> ROS Statement: Those systems with pertinent positive or pertinent negative responses have been documented in the HPI. Past Medical History Past Medical History: CVA/TIA History of Any Multi-Drug Resistant Organisms: None Reported Past Surgical History: No Surgical Hx Reported Additional Past Surgical History / Comment(s): vasectomy, last colonoscopy was 5 years ago without polyps. Past Anesthesia/Blood Transfusion Reactions: No Reported Reaction Past Psychological History: No Psychological Hx Reported Smoking Status: Former smoker Past Alcohol Use History: Occasional Past Drug Use History: None Reported - Past Family History Father Additional Family Medical History / Comment(s): Father at 47 when the patient was young of an unknown cause to him. Mother Additional Family Medical History / Comment(s): Mother in her 40s from complications of a urinary tract infection Brother(s) Additional Family Medical History / Comment(s): Patient had 8 brothers and 3 have passed. One from asbestos poisoning, one from an abdominal problem at age 86. One brother that is alive has a pacemaker. Sister(s) Additional Family Medical History / Comment(s): Patient had 3 sisters and one has passed. One sister that is alive has a pacemaker. Daughter(s) Additional Family Medical History / Comment(s): Patient has one daughter that is 47 years old with no major medical problems. <Jerry Kerns - Last Filed: 10/09/24 21:48> General Exam Limitations: no limitations General appearance: alert, in no apparent distress Head exam: Present: normocephalic Eye exam: Present: normal appearance Neck exam: Present: normal inspection. Absent: tenderness Respiratory exam: Present: normal lung sounds bilaterally Cardiovascular Exam: Present: regular rate, normal rhythm GI/Abdominal exam: Present: soft. Absent: tenderness, pulsatile mass Extremities exam: Present: normal inspection, full ROM. Absent: tenderness Back exam: Present: tenderness (Moderate diffuse lumbar spine) Neurological exam: Present: alert, CN II-XII intact. Absent: motor sensory deficit Expanded Neurological exam: Present: protecting the airway Speech: Present: fluid speech Cranial nerves: EOM's Intact: Normal Motor strength exam: RUE: 5, LUE: 5, RLE: 5, LLE: 5 Eye Response: (4) open spontaneously Motor Response: (6) obeys commands Verbal Response: (5) oriented Psychiatric exam: Present: normal affect, normal mood Skin exam: Present: normal color <Jerry Kerns - Last Filed: 10/09/24 21:48> Course Vital Signs 10/09/24 10/09/24 10/09/24 18:41 18:55 21:27 Temperature 97.4 F L Pulse Rate 54 L 62 70 Respiratory 16 18 18 Rate Blood Pressure 164/92 133/80 131/68 O2 Sat by Pulse 99 97 96 Oximetry 07/01/25 07/01/25 01:39 05:43 Temperature Pulse Rate 58 L 96 Respiratory 16 18 Rate Blood Pressure 115/65 161/85 O2 Sat by Pulse 97 93 L Oximetry EKG Findings - EKG Results: EKG: interpreted by ERMD (Left axis. First-degree AV block with a [place] of 214.), sinus rhythm, normal QRS, normal ST/T <Jerry Kerns - Last Filed: 10/09/24 21:48> Medical Decision Making - Lab Data Result diagrams: 10/09/24 19:24 10/09/24 19:24 <Jerry Kerns - Last Filed: 10/09/24 21:48> - Lab Data Result diagrams: 10/09/24 19:24 10/09/24 19:24 <Florecita Oro - Last Filed: 10/10/24 06:18> - Medical Decision Making Was pt. sent in by a medical professional or institution (, PA, ED PHYSICIANS, urgent care, hospital, or assisted...) When possible be specific @ -[No] Did you speak to anyone other than the patient for history (EMS, parent, family, police, friend...)? What history was obtained from this source @ -Niece is present and helps provide history as she is very familiar with the patient and lives 2 [address] down. Did you review nursing and triage notes (agree or disagree)? Why? @ -[I reviewed and agree with nursing and triage notes] Were old charts reviewed (outside hosp., previous admission, EMS record, old E KG, old radiological studies, urgent care reports/EKG's, assisted records)? Report findings @ -[No old charts were reviewed] Differential Diagnosis (chest pain, altered mental status, abdominal pain women, abdominal pain men, vaginal bleeding, weakness, fever, dyspnea, syncope, headache, dizziness, GI bleed, back pain, seizure, CVA, palpatations, mental health, musculoskeletal)? @ -Differential Back Pain: Strain, zoster, cauda equina syndrome, epidural abscess, vertebral osteomyelitis, discitis, fracture, subluxation, disc herniation, DJD, spinal stenosis, dissection, AAA, pancreatitis, peptic ulcer disease, pyelonephritis, kidney stone, this is not meant to be an all-inclusive list. EKG interpreted by me (3pts min.). @ -[As above] X-rays interpreted by me (1pt min.). @ -[None done] CT interpreted by me (1pt min.). @ -CT brain without acute abnormality U/S interpreted by me (1pt. min.). @ -[None done] What testing was considered but not performed or refused? (CT, X-rays, U/S, labs)? Why? @ -[None] What meds were considered but not given or refused? Why? @ -[None] Did you discuss the management of the patient with other professionals (professionals i.e. DrSharath, PA, ED PHYSICIANS, lab, RT, psych nurse, manager social work, benefits director, teacher, chemical instrumentation officer, skilled nursing case manager)? Give summary @ -[No] Was smoking cessation discussed for >3mins.? @ -[No] Was critical care preformed (if so, how long)? @ -[No] Were there social determinants of health that impacted care today? How? (Homelessness, low income, unemployed, alcoholism, drug addiction, transportation, low edu. Level, literacy, decrease access to med. care, shelter, rehab)? @ -[No] Was there de-escalation of care discussed even if they declined (Discuss DNR or withdrawal of care, Hospice)? DNR status @ -[No] What co-morbidities impacted this encounter? (DM, HTN, Smoking, COPD, CAD, Cancer, CVA, ARF, Chemo, Hep., AIDS, mental health diagnosis, sleep apnea, morbid obesity)? @ -History of previous intracranial hemorrhage Was patient admitted / discharged? Hospital course, mention meds given and route, prescriptions, significant lab abnormalities, going to OR and other pertinent info. @ -Patient presents with fall and back pain a couple of days ago. CT scan ordered and pending at signout. CT scan brain unremarkable. Labs unremarkable. Undiagnosed new problem with uncertain prognosis? @ -[No] Drug Therapy requiring intensive monitoring for toxicity (Heparin, Nitro, Insulin, Cardizem)? @ -[No] Were any procedures done? @ -[No] (Jerry Kerns) Was patient admitted / discharged? Hospital course, mention meds given and route, prescriptions, significant lab abnormalities, going to OR and other pertinent info. @ -Patient signed out to me from Dr. Kerns. CT scan demonstrates a mid uretera l stone on the left with mild hydronephrosis. I discussed results with family. Family is concerned about the patient going home as they state it is a dangerous situation that the patient is living alone. They feel that if he is already having falls, that he will have more after being sent home on pain medications. They are also concerned about the patient's confusion. Patient was given a dose of pain medications. Called and spoke with Dr. Mccracken for the admission. I will place urology on consult. Family is concerned about the patient's sundowning. I did order Seroquel Undiagnosed new problem with uncertain prognosis? @ -No Drug Therapy requiring intensive monitoring for toxicity (Heparin, Nitro, Insulin, Cardizem)? @ -No Were any procedures done? @ -No Diagnosis/symptom? @ -Fall, acute back pain, acute left mid ureteral stone with hydronephrosis Acute, or Chronic, or Acute on Chronic? @ -Acute Uncomplicated (without systemic symptoms) or Complicated (systemic symptoms)? @ -Complicated Side effects of treatment? @ -No Exacerbation, Progression, or Severe Exacerbation? @ -No Poses a threat to life or bodily function? How? (Chest pain, USA, NM, pneumonia, PE, COPD, DKA, ARF, appy, cholecystitis, CVA, Diverticulitis, Homicidal, Suicidal, threat to staff... and all critical care pts) @ -No (Florecita Oro) - Lab Data Lab Results 10/09/24 10/09/24 10/09/24 Range/Units 19:24 19:24 19:24 WBC 9.15 (4.50-10.00) 10*3/uL RBC 4.44 (4.40-5.60) 10*6/uL Hgb 14.1 (13.0-17.0) g/dL Hct 40.1 (39.6-50.0) % MCV 90.3 (80.0-97.0) fL MCH 31.8 (27.0-32.0) pg MCHC 35.2 (32.0-37.0) g/dL Plt Count 233 (140-440) 10*3/uL MPV 9.6 (9.5-12.2) fL Immature Gran % (Auto) 0.3 % Neutrophils % 70.8 % Lymphocytes % 18.1 % Monocytes % 9.3 % Eosinophils % 1.0 % Basophils % 0.5 % Immature Gran # 0.03 (0.00-0.04) 10*3/uL Neutrophils # 6.47 (1.80-7.70) 10*3/uL Lymphocytes # 1.66 (0.90-5.00) 10*3/uL Monocytes # 0.85 (0.20-1.00) 10*3/uL Eosinophils # 0.09 (0.04-0.35) 10*3/uL Basophils # 0.05 (0.00-0.10) 10*3/uL PT 13.2 H (10.0-12.5) sec INR 1.2 H (<1.2) APTT 22.5 (22.0-30.0) sec Sodium 141 (137-145) mmol/L Potassium 4.3 (3.5-5.1) mmol/L Chloride 107 (98-107) mmol/L Carbon Dioxide 23 (22-30) mmol/L Anion Gap 11 mmol/L BUN 18 (9-20) mg/dL Creatinine 0.90 (0.66-1.25) mg/dL Est GFR (CKD-EPI)AfAm 90 (>60 ml/min/1.73 sqM) Est GFR (CKD-EPI)NonAf 78 (>60 ml/min/1.73 sqM) Glucose 109 H (74-99) mg/dL POC Glucose (mg/dL) (70-110) mg/dL POC Glu [employer] ID Calcium 9.3 (8.4-10.2) mg/dL Total Bilirubin 0.8 (0.2-1.3) mg/dL AST 28 (17-59) U/L ALT 16 (4-49) U/L Alkaline Phosphatase 62 (38-126) U/L Troponin I (0.000-0.034) ng/mL Total Protein 6.8 (6.3-8.2) g/dL Albumin 4.0 (3.5-5.0) g/dL Urine Color Urine Appearance (Clear) Urine pH (5.0-8.0) Ur Specific [place] (1.001-1.035) Urine Protein (Negative) Urine Glucose (UA) (Negative) Urine Ketones (Negative) Urine Blood (Negative) Urine Nitrite (Negative) Urine Bilirubin (Negative) Urine Urobilinogen (<2.0) mg/dL Ur Leukocyte Esterase (Negative) Urine RBC (0-5) /hpf Urine WBC (0-5) /hpf Urine Mucus (None) /hpf 10/09/24 10/09/24 10/09/24 Range/Units 19:24 19:26 22:43 WBC (4.50-10.00) 10*3/uL RBC (4.40-5.60) 10*6/uL Hgb (13.0-17.0) g/dL Hct (39.6-50.0) % MCV (80.0-97.0) fL MCH (27.0-32.0) pg MCHC (32.0-37.0) g/dL Plt Count (140-440) 10*3/uL MPV (9.5-12.2) fL Immature Gran % (Auto) % Neutrophils % % Lymphocytes % % Monocytes % % Eosinophils % % Basophils % % Immature Gran # (0.00-0.04) 10*3/uL Neutrophils # (1.80-7.70) 10*3/uL Lymphocytes # (0.90-5.00) 10*3/uL Monocytes # (0.20-1.00) 10*3/uL Eosinophils # (0.04-0.35) 10*3/uL Basophils # (0.00-0.10) 10*3/uL PT (10.0-12.5) sec INR (<1.2) APTT (22.0-30.0) sec Sodium (137-145) mmol/L Potassium (3.5-5.1) mmol/L Chloride (98-107) mmol/L Carbon Dioxide (22-30) mmol/L Anion Gap mmol/L BUN (9-20) mg/dL Creatinine (0.66-1.25) mg/dL Est GFR (CKD-EPI)AfAm (>60 ml/min/1.73 sqM) Est GFR (CKD-EPI)NonAf (>60 ml/min/1.73 sqM) Glucose (74-99) mg/dL POC Glucose (mg/dL) 115 H (70-110) mg/dL POC Glu [employer] ID Spahn Shane Calcium (8.4-10.2) mg/dL Total Bilirubin (0.2-1.3) mg/dL AST (17-59) U/L ALT (4-49) U/L Alkaline Phosphatase (38-126) U/L Troponin I <0.012 (0.000-0.034) ng/mL Total Protein (6.3-8.2) g/dL Albumin (3.5-5.0) g/dL Urine Color Yellow Urine Appearance Clear (Clear) Urine pH 5.5 (5.0-8.0) Ur Specific [place] 1.025 (1.001-1.035) Urine Protein Negative (Negative) Urine Glucose (UA) Negative (Negative) Urine Ketones 1+ H (Negative) Urine Blood Moderate H (Negative) Urine Nitrite Negative (Negative) Urine Bilirubin Negative (Negative) Urine Urobilinogen <2.0 (<2.0) mg/dL Ur Leukocyte Esterase Negative (Negative) Urine RBC 26 H (0-5) /hpf Urine WBC 2 (0-5) /hpf Urine Mucus Few H (None) /hpf Disposition <Jerry Kerns - Last Filed: 10/09/24 21:48> Is patient prescribed a controlled substance at d/c from ED?: No Time of Disposition: 00:00 Decision to Admit Reason: Admit from EC Decision Date: 10/10/24 Decision Time: 00:00 <Florecita Oro - Last Filed: 10/10/24 06:18> Clinical Impression: Fall, Back pain, Ureteral stone Disposition: ADMITTED IP TO THIS [facility] Condition: Stable
[2024-10-09 19:28] LABS: Glucose,Whole Blood 115 mg/dL (70-110)
[2024-10-09 19:37] LABS: Basophils # (A) 0.05 10*3/uL (0.00-0.10); Basophils % (A) 0.5 %; Eosinophils # (A) 0.09 10*3/uL (0.04-0.35); Eosinophils % (A) 1.0 %; HCT 40.1 % (39.6-50.0); HGB 14.1 g/dL (13.0-17.0); Lymphocytes # (A) 1.66 10*3/uL (0.90-5.00); Lymphocytes % (A) 18.1 %; MCH 31.8 pg (27.0-32.0); MCHC 35.2 g/dL (32.0-37.0); MCV 90.3 fL (80.0-97.0); Monocytes # (A) 0.85 10*3/uL (0.20-1.00); Monocytes % (A) 9.3 %; Neutrophils # (A) 6.47 10*3/uL (1.80-7.70); Neutrophils % (A) 70.8 %; Platelet Count 233 10*3/uL (140-440); RBC 4.44 10*6/uL (4.40-5.60); RDW 11.9 % (11.5-14.5); WBC 9.15 10*3/uL (4.50-10.00)
[2024-10-09] MEDS: MORPHINE SULFATE 4 MG/ML SYRINGE IVP STA (19:38)
[2024-10-09] MEDS: ONDANSETRON 4 MG/2 ML VIAL IVP STA (19:41)
[2024-10-09 19:47] LABS: INR 1.2 (<1.2); Partial Thromboplastin Time 22.5 sec (22.0-30.0); Prothrombin Time 13.2 sec (10.0-12.5)
[2024-10-09 20:12] LABS: ALT 16 U/L (4-49); AST 28 U/L (17-59); African American GFR (CKD) 90 (>60 ml/min/1.73 sqM); Albumin 4.0 g/dL (3.5-5.0); Alkaline Phosphatase 62 U/L (38-126); Anion Gap 11 mmol/L; Blood Urea Nitrogen 18 mg/dL (9-20); Calcium 9.3 mg/dL (8.4-10.2); Carbon Dioxide 23 mmol/L (22-30); Chloride 107 mmol/L (98-107); Glucose 109 mg/dL (74-99); Non-African American GFR(CKD) 78 (>60 ml/min/1.73 sqM); Potassium 4.3 mmol/L (3.5-5.1); Sodium 141 mmol/L (137-145); Total Protein 6.8 g/dL (6.3-8.2)
--- NOTE | 2024-10-09 20:43 | CT ---
EXAMINATION TYPE: CT brain wo con CT DLP: 1133.1 mGycm, Automated exposure control for dose reduction was used. DATE OF EXAM: 10/09/2024 8:20 PM COMPARISON: CT head 08/12/2023. CLINICAL INDICATION:Male, 84 years old with history of Altered mental status, ams TECHNIQUE: Brain: Axial CT images of the brain were obtained with coronal and sagittal reformats created and rev iewed. Contrast used: None. Oral contrast used: None. FINDINGS: Brain: Extra-axial spaces: No abnormal extra-axial fluid collections. Ventricular system: Dilatation in proportion to cerebral atrophy. Cerebral parenchyma: Cerebral atrophy. No acute intraparenchymal hemorrhage or mass effect. The jansen -white junction is well differentiated. Scattered hypoattenuating areas are seen within the white mat ter. Bilateral basal ganglia mineralization. Cerebral atrophy/encephalomalacia in the left parietal cerebral region. Cerebellum: Unremarkable. Mass effect: No evidence of midline shift. Intracranial vasculature: Atherosclerotic calcifications of the intracranial vessels. Soft tissues: Normal. Calvarium/osseous structures: No depressed skull fracture. Paranasal sinuses and mastoid air cells: Mild scattered paranasal sinus disease. Visualized orbits: Orbital contents are intact. IMPRESSION: 1. No acute intracranial process. 2. Nonspecific white matter changes, likely secondary to chronic small vessel ischemic disease. [facility], , 10/09/2024 8:40 PM
--- NOTE | 2024-10-09 21:59 | CT ---
EXAMINATION TYPE: CT lumbar spine wo con CT DLP: 2078.4 mGycm, Automated exposure control for dose reduction was used. DATE OF EXAM: 10/09/2024 8:20 PM COMPARISON: CT abdomen/pelvis 04/26/2020. CLINICAL INDICATION:Male, 84 years old with history of trauma; PHH, trauma, lower back pain, fall 2 d ays ago, pain TECHNIQUE: Multiple axial images were obtained from the midportion of T11 through the sacroiliac diego nts. Soft tissue and bone windows in coronal and sagittal planes were obtained and reviewed. 3-D ref ormats of the bones were created on a separate workstation and submitted for review. Contrast used: mL of , (None, if empty). Oral contrast used: (None, if empty). FINDINGS: Alignment: There are 5 lumbar type vertebral bodies within normal alignment. Bone: No acute fractures. Osteopenia. Discs: Multilevel disc degenerative changes are seen resulting in circumferential disc bulging from L1 throu gh L5 resulting in mild spinal canal stenosis at these levels. There are multilevel facet arthropathy seen bilaterally right greater than left resulting in mild to moderate neural foraminal stenosis at L4-L5. No discrete disc herniation. Other: There is mild left hydroureteronephrosis with a 4 mm obstructive calculus noted in the mid/distal lef t ureter. There is an an additional nonobstructive sub-4 mm left renal calculus. IMPRESSION: 1. No evidence for acute spinal fracture. 2. Multilevel disc degenerative changes are seen resulting in multilevel mild spinal canal and mild-t o-moderate neural foraminal stenosis as described above. 3. Incidental note of a obstructive left mid/distal ureteral calculus measuring up to 4 mm with resul tant mild left hydroureteronephrosis. Additional nonobstructive sub-4 mm left renal calculus noted. [facility], , 10/09/2024 9:57 PM
--- NOTE | 2024-10-09 22:34 | XR ---
EXAMINATION TYPE: XR chest 2V DATE OF EXAM: 10/09/2024 8:28 PM CLINICAL INDICATION:Male, 84 years old with history of altered mental status; [facility] COMPARISON: Chest radiographs from 08/12/2023 TECHNIQUE: XR chest 2V Frontal view of the chest. FINDINGS: There are some patchy interstitial and airspace opacity seen in the bilateral lungs. No pneumothorax. Cardiac silhouette is mildly enlarged. Acute osseous abnormalities. IMPRESSION: Bilateral patchy interstitial and airspace disease may relate to underlying fibrotic changes versus a n acute infectious/inflammatory process. Mild cardiomegaly. [facility], , 10/09/2024 10:32 PM
[2024-10-09 23:52] LABS: Bilirubin,Urine Negative (Negative); Blood,Urine Moderate (Negative); Color,Urine Yellow; Glucose,Urine (UA) Negative (Negative); Ketones,Urine 1+ (Negative); Leukocyte Esterase,Urine Negative (Negative); Mucus,Urine Few /hpf; Nitrite,Urine Negative (Negative); PH, Urine 5.5 (5.0-8.0); Protein,Urine Negative (Negative); RBC,Urine 26 /hpf (0-5); Specific Gravity,Urine 1.025 (1.001-1.035); Urobilinogen,Urine <2.0 mg/dL (<2.0); WBC,Urine 2 /hpf (0-5)
[2024-10-10] MEDS ORDERED: NALOXONE 0.4 MG/ML 1 ML VIAL IV PRN (00:02)
[2024-10-10] MEDS: ONDANSETRON 4 MG/2 ML VIAL IVP PRN (02:23)
[2024-10-10] MEDS: MORPHINE SULFATE 4 MG/ML SYRINGE IV PRN (02:25)
[2024-10-10] MEDS: QUEtiapine 25 MG TAB PO STA (02:33)
--- NOTE | 2024-10-10 04:00 | P.HPIM ---
History of Present Illness H&P Date: 10/10/24 Chief Complaint: Flank pain The patient is an 84-year-old male with history of TIA, hemorrhagic stroke who fell on the day of admission. The patient had a fall a couple days prior. The patient at that time called EMS but did not seek medical attention because he felt he was doing fine. The patient had worsening symptoms over the last few days with some nausea and continued left flank pain. The patient needs initially gave a report that she felt the patient was also more confused this was discussed with the ED provider. The patient was initially confused when EMS was brought to the emergency room. The patient had a WBC of 9.15, hemoglobin of 14.1, BUN of 18, creatinine 0.9. Patient had a CT of his spine that showed a 4 mm obstructive stone. This was in the midst distal left ureter. The patient was hospitalized for further workup and management. Review of Systems Constitutional: Reports weakness Past Medical History Past Medical History: CVA/TIA History of Any Multi-Drug Resistant Organisms: None Reported Past Surgical History: No Surgical Hx Reported Additional Past Surgical History / Comment(s): vasectomy, last colonoscopy was 5 years ago without polyps. Past Anesthesia/Blood Transfusion Reactions: No Reported Reaction Past Psychological History: No Psychological Hx Reported Smoking Status: Former smoker Past Alcohol Use History: Occasional Past Drug Use History: None Reported - Past Family History Father Additional Family Medical History / Comment(s): Father at 47 when the patient was young of an unknown cause to him. Mother Additional Family Medical History / Comment(s): Mother in her 40s from complications of a urinary tract infection Brother(s) Additional Family Medical History / Comment(s): Patient had 8 brothers and 3 have passed. One from asbestos poisoning, one from an abdominal problem at age 86. One brother that is alive has a pacemaker. Sister(s) Additional Family Medical History / Comment(s): Patient had 3 sisters and one has passed. One sister that is alive has a pacemaker. Daughter(s) Additional Family Medical History / Comment(s): Patient has one daughter that is 47 years old with no major medical problems. Medications and Allergies Home Medications Medication Instructions Recorded Confirmed Type No Known Home Medications 08/12/23 08/12/23 History Allergies Allergy/AdvReac Type Severity Reaction Status Date / Time No Known Allergies Allergy Verified 10/09/24 18:45 Physical Exam Vitals: Vital Signs Temp Pulse Resp BP Pulse Ox 10/10/24 01:39 58 L 16 115/65 97 10/09/24 21:27 70 18 131/68 96 10/09/24 18:55 62 18 133/80 97 10/09/24 18:41 97.4 F L 54 L 16 164/92 99 Intake and Output 10/09/24 10/09/24 10/10/24 14:59 22:59 06:59 Other: Weight 90.718 kg - Constitutional General appearance: mild distress - Respiratory Respiratory: bilateral: CTA - Cardiovascular Rhythm: regular - Gastrointestinal General gastrointestinal: normal bowel sounds - Musculoskeletal Left flank pain Musculoskeletal: strength equal bilaterally Results CBC & Chem 7: 10/09/24 19:24 10/09/24 19:24 Labs: Abnormal Lab Results - Last 24 Hours (Table) 10/09/24 10/09/24 10/09/24 Range/Units 19:24 19:24 19:26 PT 13.2 H (10.0-12.5) sec INR 1.2 H (<1.2) Glucose 109 H (74-99) mg/dL POC Glucose (mg/dL) 115 H (70-110) mg/dL Urine Ketones (Negative) Urine Blood (Negative) Urine RBC (0-5) /hpf Urine Mucus (None) /hpf 10/09/24 Range/Units 22:43 PT (10.0-12.5) sec INR (<1.2) Glucose (74-99) mg/dL POC Glucose (mg/dL) (70-110) mg/dL Urine Ketones 1+ H (Negative) Urine Blood Moderate H (Negative) Urine RBC 26 H (0-5) /hpf Urine Mucus Few H (None) /hpf CT scan - abdomen: report reviewed Assessment and Plan (1) Ureteral stone Narrative/Plan: Patient with back pain and fall secondary to likely stone. IV fluids, antiemetics, urology consult, pain control, keep patient n.p.o. after midnight Current Visit: Yes Status: Acute Code(s): N20.1 - CALCULUS OF URETER SNOMED Code(s): 83255162 (2) Back pain Narrative/Plan: Secondary to ureteral stone, pain control Current Visit: Yes Status: Acute Code(s): M54.9 - DORSALGIA, UNSPECIFIED SNOMED Code(s): 105670078 (3) Fall Narrative/Plan: Will get PT OT evaluation Current Visit: Yes Status: Acute Code(s): W19.XXXA - UNSPECIFIED FALL, INITIAL ENCOUNTER SNOMED Code(s): 9556385
[2024-10-10] MEDS: SODIUM CHLORIDE 0.9% 1,000 ML IV SCH (04:25)
[2024-10-10] MEDS: HALOPERIDOL LACTATE 5 MG/ML 1 ML VIAL IM STA (04:25)
[2024-10-10] MEDS: LORazepam 1 MG/0.5 ML VIAL IV STA (06:12)
--- NOTE | 2024-10-10 09:21 | P.GSCN ---
History of Present Illness Consult date: 10/10/24 Reason for Consult: Left ureteral stone History of present illness: 84-year-old male admitted to the hospital following a fall, he underwent a CT lumbar spine which showed evidence of a 4 mm left-sided distal ureteral stone, urology was consulted for that. On evaluation this morning patient is confused very difficult to obtain an accurate history, but in review of chart it appears that he has been having left flank pain with nausea. No previous known history of kidney stones. On evaluation it does not appear to be that he is having left flank pain this morning. He is hemodynamically stable and his urinalysis is only significant for blood. Review of Systems ROS unobtainable: due to mental status Past Medical History Past Medical History: CVA/TIA History of Any Multi-Drug Resistant Organisms: None Reported Past Surgical History: No Surgical Hx Reported Additional Past Surgical History / Comment(s): vasectomy, last colonoscopy was 5 years ago without polyps. Past Anesthesia/Blood Transfusion Reactions: No Reported Reaction Past Psychological History: No Psychological Hx Reported Smoking Status: Former smoker Past Alcohol Use History: Occasional Past Drug Use History: None Reported - Past Family History Father Additional Family Medical History / Comment(s): Father at 47 when the pa tient was young of an unknown cause to him. Mother Additional Family Medical History / Comment(s): Mother in her 40s from complications of a urinary tract infection Brother(s) Additional Family Medical History / Comment(s): Patient had 8 brothers and 3 have passed. One from asbestos poisoning, one from an abdominal problem at age 86. One brother that is alive has a pacemaker. Sister(s) Additional Family Medical History / Comment(s): Patient had 3 sisters and one has passed. One sister that is alive has a pacemaker. Daughter(s) Additional Family Medical History / Comment(s): Patient has one daughter that is 47 years old with no major medical problems. Medications and Allergies Home Medications Medication Instructions Recorded Confirmed Type No Known Home Medications 08/12/23 08/12/23 History Allergies Allergy/AdvReac Type Severity Reaction Status Date / Time No Known Allergies Allergy Verified 10/09/24 18:45 Surgical - Exam Vital Signs Temp Pulse Resp BP Pulse Ox 97.4 F L 54 L 16 164/92 99 10/09/24 18:41 10/09/24 18:41 10/09/24 18:41 10/09/24 18:41 10/09/24 18:41 - General no distress, no pain - Respiratory normal expansion, normal respiratory effort - Abdomen Abdomen: soft, non tender, no distended Results - Labs 10/09/24 19:24 10/09/24 19:24 Abnormal Lab Results - Last 24 Hours (Table) 10/09/24 10/09/24 10/09/24 Range/Units 19:24 19:24 19:26 PT 13.2 H (10.0-12.5) sec INR 1.2 H (<1.2) Glucose 109 H (74-99) mg/dL POC Glucose (mg/dL) 115 H (70-110) mg/dL Urine Ketones (Negative) Urine Blood (Negative) Urine RBC (0-5) /hpf Urine Mucus (None) /hpf 10/09/24 Range/Units 22:43 PT (10.0-12.5) sec INR (<1.2) Glucose (74-99) mg/dL POC Glucose (mg/dL) (70-110) mg/dL Urine Ketones 1+ H (Negative) Urine Blood Moderate H (Negative) Urine RBC 26 H (0-5) /hpf Urine Mucus Few H (None) /hpf Diabetes panel 10/09/24 Range/Units 19:24 Sodium 141 (137-145) mmol/L Potassium 4.3 (3.5-5.1) mmol/L Chloride 107 (98-107) mmol/L Carbon Dioxide 23 (22-30) mmol/L BUN 18 (9-20) mg/dL Creatinine 0.90 (0.66-1.25) mg/dL Glucose 109 H (74-99) mg/dL Calcium 9.3 (8.4-10.2) mg/dL AST 28 (17-59) U/L ALT 16 (4-49) U/L Alkaline Phosphatase 62 (38-126) U/L Total Protein 6.8 (6.3-8.2) g/dL Albumin 4.0 (3.5-5.0) g/dL Calcium panel 10/09/24 Range/Units 19:24 Calcium 9.3 (8.4-10.2) mg/dL Albumin 4.0 (3.5-5.0) g/dL Pituitary panel 10/09/24 Range/Units 19:24 Sodium 141 (137-145) mmol/L Potassium 4.3 (3.5-5.1) mmol/L Chloride 107 (98-107) mmol/L Carbon Dioxide 23 (22-30) mmol/L BUN 18 (9-20) mg/dL Creatinine 0.90 (0.66-1.25) mg/dL Glucose 109 H (74-99) mg/dL Calcium 9.3 (8.4-10.2) mg/dL Adrenal panel 10/09/24 Range/Units 19:24 Sodium 141 (137-145) mmol/L Potassium 4.3 (3.5-5.1) mmol/L Chloride 107 (98-107) mmol/L Carbon Dioxide 23 (22-30) mmol/L BUN 18 (9-20) mg/dL Creatinine 0.90 (0.66-1.25) mg/dL Glucose 109 H (74-99) mg/dL Calcium 9.3 (8.4-10.2) mg/dL Total Bilirubin 0.8 (0.2-1.3) mg/dL AST 28 (17-59) U/L ALT 16 (4-49) U/L Alkaline Phosphatase 62 (38-126) U/L Total Protein 6.8 (6.3-8.2) g/dL Albumin 4.0 (3.5-5.0) g/dL Assessment and Plan Assessment: 84-year-old male with history of a 3 mm left-sided distal stone, urine is not infected he is hemodynamically stable. This is a fairly small stone most likely he will most likely pass spontaneously. It is difficult to obtain accurate history given his confusion. Given his confusion I would recommend discontinuing the morphine and using Toradol as needed for pain. No acute surg ical intervention from urology standpoint, we will reassess tomorrow
[2024-10-10] MEDS: KETOROLAC 15 MG/ML 1 ML VIAL IVP PRN (10:52)
--- NOTE | 2024-10-10 16:51 | P.PN ---
Subjective Progress Note Date: 10/10/24 Hospital course: Patient is a very pleasant 84-year-old male with a past medical history of hemorrhagic stroke. He presented to the emergency department secondary to recurrent falls at home and confusion accompanied by reports of nausea and left flank pain. Upon arrival to our facility, patient underwent evaluation in the emergency department. Vital signs upon arrival show blood pressure 164/92, hea rt rate 54, respiratory rate 16, temp 97.4 F, and SpO2 of 99% on room air. EKG completed showing normal sinus rhythm at 61 bpm with a first-degree AV block with VT interval of 214 ms and occasional PACs. Chest x-ray completed showing bilateral patchy interstitial airspace disease likely related to underlying fibrotic changes. CT brain negative for acute intracranial process showing nonspecific white matter changes likely secondary to chronic small vessel ischemic changes. CT lumbar spine completed negative for acute spinal fracture showing multilevel degenerative disc disease with mild spinal canal and mild to moderate neuroforaminal stenosis and incidental note of an obstructive left mid distal ureteral calculus measuring up to 4 mm with resultant mild left hydronephrosis. Labs completed and reviewed. CBC unremarkable. Coagulation profile showing elevated PT of 13.2 and INR of 1.2. BMP unremarkable. Blood glucose 109. Calcium 9.3. Liver profile unremarkable. Troponin was negative at less than 0.012. Urinalysis positive for ketones, blood, and 26 RBCs. Physical exam: Patient was seen and fully evaluated at bedside. Patient currently alert to person only confused to place, time, and situation. Patient restless and agitated complaining of left flank pain. RN medicating patient at this time. Order placed for bladder scan to monitor for postvoid residual/retention Vital signs reviewed and stable. General: Nontoxic, no distress and appears stated age. Derm: Skin warm and dry, normal coloration for ethnicity. Head: Atraumatic, normocephalic and symmetric. Eyes: EOM's intact, no lid lag, and anicteric sclera Mouth: no lip lesions, mucus membranes moist Cardiovascular: regular rate and rhythm with normal S1S2, no murmur, positive posterior tibial pulses bilaterally, and cap refill < 2 seconds. Lungs: Respirations even, regular, and unlabored on room air. Lungs CTA bilaterally, no rhonchi, no rales, no wheezing, and no accessory muscle usage. Abdominal: soft, nontender to palpation, no guarding, no appreciable organomegaly Ext: No gross muscle atrophy, no edema, no contractures. And sensation intact. Patient moving all extremities independently, difficulty following commands secondary to confusion/delirium. Neuro: Speech clear, face symmetrical and CN II-XII grossly intact with no noted focal neuro deficits Psych: Alert and oriented to person only. Assessment and Plan of Care: Obstructing left ureteral stone Left-sided hydronephrosis Metabolic encephalopathy, likely secondary to above Left-sided flank pain and nausea, secondary to above -Urology consulted, appreciate recommendations. -Patient started on Flomax 0.4 mg daily. -Bladder scan to monitor for postvoid residual/retention -Monitor I's and O's -Continue close monitoring with repeat a.m. labs. History of hemorrhagic stroke CT brain negative for acute process. BEREKET shanabida and INGAsandra for DVT prophylaxis Recurrent falls at home Generalized weakness PT/OT consulted, appreciate recommendations Case management consulted for assistance with placement in SNF Maintain fall precautions Data and imaging reviewed: Vital signs reviewed. Blood pressure 145/86, heart rate 84, respiratory rate 16, temp 97.6 F, and SpO2 of 94% on room air. Labs completed and reviewed. CBC unremarkable. Coagulation profile showing elevated PT of 13.2 and INR of 1.2. BMP unremarkable. Blood glucose 109. Calcium 9.3. Liver profile unremarkable. Troponin was negative at less than 0.012. Urinalysis positive for ketones, blood, and 26 RBCs. CODE STATUS: Full code DVT prophylaxis: BEREKET torrezabida and INGAs Anticipated discharge date: Pending clinical course Anticipated discharge place: Pending clinical course Patient was seen independently by Nurse Pracitioner. This document was prepared using [employer] dictation software. Please allow for errors in enrobing machine operator, while rare they do occur. Elias Peterson NP rendered care for this patient independently, reviewed the findings and plan as documented in the note above and agree with plan. I did not physically speak with or examine the patient on this date. Objective - Vital Signs Vital signs: Vital Signs Temp 97.6 F 10/10/24 07:45 Pulse 84 10/10/24 07:45 Resp 16 10/10/24 07:45 BP 145/86 10/10/24 07:45 Pulse Ox 94 L 10/10/24 07:45 FiO2 Intake & Output 10/09/24 10/10/24 10/10/24 18:59 06:59 18:59 Weight 90.718 kg - Labs CBC & Chem 7: 10/09/24 19:24 10/09/24 19:24 Labs: Abnormal Lab Results - Last 24 Hours (Table) 10/09/24 10/09/24 10/09/24 Range/Units 19:24 19:24 19:26 PT 13.2 H (10.0-12.5) sec INR 1.2 H (<1.2) Glucose 109 H (74-99) mg/dL POC Glucose (mg/dL) 115 H (70-110) mg/dL Urine Ketones (Negative) Urine Blood (Negative) Urine RBC (0-5) /hpf Urine Mucus (None) /hpf 10/09/24 Range/Units 22:43 PT (10.0-12.5) sec INR (<1.2) Glucose (74-99) mg/dL POC Glucose (mg/dL) (70-110) mg/dL Urine Ketones 1+ H (Negative) Urine Blood Moderate H (Negative) Urine RBC 26 H (0-5) /hpf Urine Mucus Few H (None) /hpf
[2024-10-10] MEDS: TAMSULOSIN 0.4 MG CAP.ER.24H PO SCH (17:12)
[2024-10-10] MEDS: QUEtiapine 25 MG TAB PO SCH (21:24)
[2024-10-10] MEDS: OLANZapine 10 MG VIAL IM ONE (22:09)
[2024-10-11] MEDS: diphenhydrAMINE 50 MG/ML 1 ML VIAL IVP STA (00:03)
[2024-10-11] MEDS: HALOPERIDOL LACTATE 5 MG/ML 1 ML VIAL IM STA (02:24)
--- NOTE | 2024-10-11 09:12 | P.PN ---
Subjective Progress Note Date: 10/11/24 Patient developed retention of 400 mL and subsequently a Huff catheter was placed. Still confused difficult to obtain an accurate history but appears asymptomatic Objective - Vital Signs Vital signs: Vital Signs Temp 97.8 F 10/10/24 19:37 Pulse 81 10/10/24 19:37 Resp 16 10/10/24 19:37 BP 158/73 10/10/24 19:37 Pulse Ox 96 10/10/24 19:37 FiO2 Intake & Output 10/10/24 10/11/24 10/11/24 18:59 06:59 18:59 Intake Total 270 Output Total 350 800 Balance -80 -800 Intake: Oral 270 Output: Urine 350 800 Uretheral (Huff) 350 Other: Voiding Method Diaper Indwelling Catheter - Constitutional General appearance: Present: no acute distress - Labs CBC & Chem 7: 10/09/24 19:24 10/09/24 19:24 Assessment and Plan Assessment: 84-year-old male with history of a 3 mm left-sided distal stone, urine is not infected he is hemodynamically stable. This is a fairly small stone most likely he will most likely pass spontaneously. It is difficult to obtain accurate history given his confusion. Given his confusion I would recommend discontinuing the morphine and using Toradol as needed for pain. No acute surgical intervention from urology standpoint. He did develop retention of 400 mL yesterday. Given his age and his mental status recommend continue with the Flomax and removing the Huff catheter, if his postvoid residual is less than 400 mL no need to reinsert the catheter
[2024-10-11 11:56] LABS: Basophils # (A) 0.03 10*3/uL (0.00-0.10); Basophils % (A) 0.3 %; Eosinophils # (A) 0.10 10*3/uL (0.04-0.35); Eosinophils % (A) 1.1 %; HCT 30.0 % (39.6-50.0); Lymphocytes # (A) 0.87 10*3/uL (0.90-5.00); Lymphocytes % (A) 10.0 %; MCH 31.7 pg (27.0-32.0); MCHC 34.7 g/dL (32.0-37.0); MCV 91.5 fL (80.0-97.0); Monocytes # (A) 1.14 10*3/uL (0.20-1.00); Monocytes % (A) 13.0 %; Neutrophils # (A) 6.57 10*3/uL (1.80-7.70); Neutrophils % (A) 75.3 %; Platelet Count 149 10*3/uL (140-440); RBC 3.28 10*6/uL (4.40-5.60); RDW 12.1 % (11.5-14.5); WBC 8.74 10*3/uL (4.50-10.00)
[2024-10-11 12:08] LABS: African American GFR (CKD) 77 (>60 ml/min/1.73 sqM); Anion Gap 9 mmol/L; Blood Urea Nitrogen 16 mg/dL (9-20); Carbon Dioxide 14 mmol/L (22-30); Chloride 118 mmol/L (98-107); Glucose 57 mg/dL (74-99); Non-African American GFR(CKD) 67 (>60 ml/min/1.73 sqM); Sodium 141 mmol/L (137-145)
[2024-10-11 12:19] LABS: HGB 10.4 g/dL (13.0-17.0)
[2024-10-11 12:59] LABS: Calcium 5.7 mg/dL (8.4-10.2); Magnesium 1.2 mg/dL (1.6-2.3); Potassium 2.6 mmol/L (3.5-5.1)
[2024-10-11 15:27] LABS: HCT 40.1 % (39.6-50.0); MCH 32.0 pg (27.0-32.0); MCHC 34.4 g/dL (32.0-37.0); MCV 93.0 fL (80.0-97.0); Platelet Count 200 10*3/uL (140-440); RBC 4.31 10*6/uL (4.40-5.60); RDW 12.0 % (11.5-14.5); WBC 11.45 10*3/uL (4.50-10.00)
[2024-10-11 15:41] LABS: African American GFR (CKD) 48 (>60 ml/min/1.73 sqM); Anion Gap 14 mmol/L; Blood Urea Nitrogen 22 mg/dL (9-20); Calcium 8.2 mg/dL (8.4-10.2); Carbon Dioxide 14 mmol/L (22-30); Chloride 112 mmol/L (98-107); Glucose 82 mg/dL (74-99); Magnesium 1.6 mg/dL (1.6-2.3); Non-African American GFR(CKD) 42 (>60 ml/min/1.73 sqM); Potassium 4.0 mmol/L (3.5-5.1); Sodium 140 mmol/L (137-145)
[2024-10-11 15:53] LABS: HGB 13.8 g/dL (13.0-17.0)
[2024-10-11] MEDS ORDERED: ACETAMINOPHEN IV (For NPO) 1,000 MG in EMPTY BAG 1 BAG IVPB PRN (17:02)
--- NOTE | 2024-10-11 17:04 | P.PN ---
Subjective Progress Note Date: 10/11/24 Hospital course: Patient is a very pleasant 84-year-old male with a past medical history of hemorrhagic stroke with aphasia baseline. He presented to the emergency department secondary to recurrent falls at home and confusion accompanied by reports of nausea and left flank pain. Upon arrival to our facility, patient underwent evaluation in the emergency department. Vital signs upon arrival show blood pressure 164/92, heart rate 54, respiratory rate 16, temp 97.4 F, and SpO2 of 99% on room air. EKG completed showing normal sinus rhythm at 61 bpm with a first-degree AV block with CA interval of 214 ms and occasional PACs. Chest x-ray completed showing bilateral patchy interstitial airspace disease likely related to underlying fibrotic changes. CT brain negative for acute intracranial process showing nonspecific white matter changes likely secondary to chronic small vessel ischemic changes. CT lumbar spine completed negative for acute spinal fracture showing multilevel degenerative disc disease with mild spinal canal and mild to moderate neuroforaminal stenosis and incidental note of an obstructive left mid distal ureteral calculus measuring up to 4 mm with resultant mild left hydronephrosis. Labs completed and reviewed. CBC unremarkable. Coagulation profile showing elevated PT of 13.2 and INR of 1.2. BMP unremarkable. Blood glucose 109. Calcium 9.3. Liver profile unremarkable. Troponin was negative at less than 0.012. Urinalysis positive for ketones, blood, and 26 RBCs. Physical exam: Patient was seen and fully evaluated at bedside. Patient remains confused but is more alert this morning and answering some questions. Huff catheter is in place, discussed with urologist, Dr. Guevara and he is recommending removal of Huff catheter later today and repeating voiding challenge. Vital signs reviewed and stable. General: Nontoxic, no distress and appears stated age. Derm: Skin warm and dry, normal coloration for ethnicity. Head: Atraumatic, normocephalic and symmetric. Eyes: EOM's intact, no lid lag, and anicteric sclera Mouth: no lip lesions, mucus membranes moist Cardiovascular: regular rate and rhythm with normal S1S2, no murmur, positive posterior tibial pulses bilaterally, and cap refill < 2 seconds. Lungs: Respirations even, regular, and unlabored on room air. Lungs CTA bilaterally, no rhonchi, no rales, no wheezing, and no accessory muscle usage. Abdominal: soft, nontender to palpation, no guarding, no appreciable organomegaly Ext: No gross muscle atrophy, no edema, no contractures. Movement and sensation intact. Patient moving all extremities independently, difficulty following commands secondary to confusion/delirium. Neuro/Psych: Speech aphasic at baseline, face symmetrical. Patient alert and oriented to person only, more awake and answering more yes/no questions and more cooperative with care Assessment and Plan of Care: Obstructing left ureteral stone Left-sided hydronephrosis Urinary retention Acute kidney injury, secondary to above High anion gap metabolic acidosis Metabolic encephalopathy, secondary to above Left-sided flank pain and nausea, secondary to above and resolved -Urology following, discussed alicia of care with Dr. Guevara. -Continue Flomax 0.4 mg daily. -Remove with Huff catheter and perform voiding challenge later today, discussed with RN -Bladder scan to monitor for postvoid residual/retention -Monitor I's and O's -Hold nephrotoxic medications including Toradol, continue gentle IV fluid h ydration with 0.9% normal saline at 75 cc/h. Continue close monitoring with repeat a.m. labs. Hypomagnesemia -Magnesium 1.6. Orders placed for magnesium sulfate 2 g IVPB x 1 dose. Will continue to monitor closely with repeat a.m. labs and replace abnormal electrolyte values if indicated based upon these results. History of hemorrhagic stroke with residual deficits of aphasia CT brain negative for acute process. BEREKET Navas for DVT prophylaxis Recurrent falls at home Generalized weakness PT/OT consulted, recommending SNF Case management consulted for assistance with placement in SNF and discussed plan of care with social workers stating patient will require 3 night hospit alization per insurance recommendations for rehab. Maintain fall precautions Data and imaging reviewed: Vital signs reviewed. Blood pressure 130/70, heart rate 64, respiratory rate 20, temp 97.8 F, and SpO2 of 90% on room air Labs completed and reviewed. CBC showing leukocytosis with WBC count of 11.45 otherwise normal findings. BMP showing high anion gap metabolic acidosis with chloride of 112, bicarb of 14, and anion gap of 14 and acute kidney injury with BUN of 22, creatinine 1.51, GFR 42. Blood glucose 82. Magnesium low at 1.6. CODE STATUS: Full code DVT prophylaxis: BEREKET Navas Anticipated discharge date: Discussed with social staff worker, patient will require 3 night stay per [employer] insurance requirements prior to insurance authorization for longterm facility. Anticipated discharge place[facility] prison facility Patient was seen independently by Nurse Pracitioner. This document was prepared using [employer] dictation software. Please allow for errors in services engineer, while rare they do occur. Elias Peterson NP rendered care for this patient independently, reviewed the findings and plan as documented in the note above and agree with plan. I did not physically speak with or examine the patient on this date. Objective - Vital Signs Vital signs: Vital Signs Temp 97.8 F 10/10/24 19:37 Pulse 81 10/10/24 19:37 Resp 16 10/10/24 19:37 BP 158/73 10/10/24 19:37 Pulse Ox 96 10/10/24 19:37 FiO2 Intake & Output 10/10/24 10/11/24 10/11/24 18:59 06:59 18:59 Intake Total 270 Output Total 350 800 Balance -80 -800 Intake: Oral 270 Output: Urine 350 800 Uretheral (Huff) 350 Other: Voiding Method Diaper Indwelling Catheter - Labs CBC & Chem 7: 10/11/24 14:57 10/11/24 14:57
[2024-10-11] MEDS: MAGNESIUM SULFATE-D5W PMX 1 GM in DEXTROSE/WATER 1 100ML.BAG IVPB SCH (17:16)
[2024-10-12 01:57] VITALS: RESP 20
[2024-10-12 07:50] LABS: HCT 38.5 % (39.6-50.0); HGB 13.0 g/dL (13.0-17.0); MCH 30.8 pg (27.0-32.0); MCHC 33.8 g/dL (32.0-37.0); MCV 91.2 FL (80.0-97.0); NRBC Per 100 WBC 0 X 10*3/uL (0.00-0.01); Platelet Count 198 X 10*3/uL (140-440); RBC 4.22 X 10*6/uL (4.40-5.60); RDW 12.3 % (11.5-14.5); WBC 9.31 X 10*3/uL (4.50-10.00)
[2024-10-12 08:32] LABS: Anion Gap 9.40 mmol/L (4.00-12.00); BUN/Creat Ratio 14.19 Ratio (12.00-20.00); Blood Urea Nitrogen 22.7 mg/dL (9.0-27.0); Calcium 7.8 mg/dL (8.7-10.3); Carbon Dioxide 21.6 mmol/L (21.6-31.8); Chloride 109 mmol/L (96-109); Glucose 110 mg/dL (70-110); Magnesium 2.1 mg/dL (1.5-2.4); Potassium 3.8 mmol/L (3.5-5.5); Sodium 140 mmol/L (135-145)
--- NOTE | 2024-10-12 10:32 | US ---
EXAMINATION TYPE: US kidneys/renal and bladder DATE OF EXAM: 10/12/2024 COMPARISON: CT lumbar spine 10/09/2024 CLINICAL INDICATION: Male, 84 years old with history of AUSTYN, ureter stone; TECHNIQUE: Grayscale imaging of the bilateral kidneys and urinary bladder: FINDINGS: EXAM MEASUREMENTS: Right Kidney: 10.9x5.3x4.3cm Left Kidney: 10.8x5.9x5.2cm limited scam, pt unable to move on his own or hold breath Right Kidney: No hydronephrosis or masses seen Left Kidney: ?possible trace hydro seen vs dilated renal pelvis Bladder: wnl Bilateral Jets seen: Yes No hydronephrosis involving the right kidney. Trace left hydronephrosis. No shadowing renal calculi b ilaterally. Corticomedullary differentiation is maintained bilaterally. No solid renal masses identif ied. Urinary bladder is anechoic and unremarkable. Bilateral ureteral jets identified. IMPRESSION: Trace left hydronephrosis. [facility], , 10/12/2024 10:30 AM
--- NOTE | 2024-10-12 10:52 | P.DS ---
Providers Date of admission: 10/10/24 00:15 Expected date of discharge: 10/12/24 Attending physician: Moni Mccracken MD Consults: 10/10/24 00:02 Consult Physician Urgent Consulting Provider: Major Guevara Consult Reason/Comments: left ureteral stone Do you want consulting provider notified?: Yes Primary care physician: [facility] Course: Discharge Diagnosis: Obstructing left ureteral stone, resolved without intervention Left-sided hydronephrosis, improved Urinary retention, resolved Acute kidney injury, secondary to urinary retention. Renal function on discharge showing BUN of 22.7, creatinine of 1.6, GFR 42. Urinary retention has not resolved Bibasilar opacity. Likely atelectasis. Patient did have isolated low-grade temp of 100.2 F and developed a nonproductive cough. Repeat chest x-ray was completed showing redemonstration of bibasilar opacity with linear appearance suggesting of linear atelectasis and less likely infiltrate. Patient empirically started on Levaquin 5-day course and encouraged to use incentive spirometry. Cepheid 4 Plex viral panel was completed negative for influenza A, influenza B, RSV, and COVID. High anion gap metabolic acidosis, resolved Acute Metabolic encephalopathy, significantly improved. Patient now alert and oriented x 3 answering questions appropriately. Left-sided flank pain and nausea, secondary to above and resolved. Hypomagnesemia resolved. 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 CT brain negative for acute process. Recurrent falls at home. Generalized weakness Hospital Course: Patient is a very pleasant 84-year-old male with a past medical history of hemorrhagic stroke with aphasia baseline. He presented to the emergency department secondary to recurrent falls at home and confusion accompanied by reports of nausea and left flank pain. Upon arrival to our facility, patient underwent evaluation in the emergency department. Vital signs upon arrival show blood pressure 164/92, heart rate 54, respiratory rate 16, temp 97.4 F, and SpO2 of 99% on room air. EKG completed showing normal sinus rhythm at 61 bpm with a first-degree AV block with MI interval of 214 ms and occasional PACs. Chest x-ray completed showing bilateral patchy interstitial airspace disease likely related to underlying fibrotic changes. CT brain negative for acute intracranial process showing nonspecific white matter changes likely secondary to chronic small vessel ischemic changes. CT lumbar spine completed negative for acute spinal fracture showing multilevel degenerative disc disease with mild spinal canal and mild to moderate neuroforaminal stenosis and incidental note of an obstructive left mid distal ureteral calculus measuring up to 4 mm with resultant mild left hydronephrosis. Labs completed and reviewed. CBC unremarkable. Coagulation profile showing elevated PT of 13.2 and INR of 1.2. BMP unremarkable. Blood glucose 109. Calcium 9.3. Liver profile unremarkable. Troponin was negative at less than 0.012. Urinalysis positive for ketones, blood, and 26 RBCs. Patient was admitted under our services with consultation to urology. He was initially found to have urinary retention and a Huff catheter was placed and patient was started on Flomax. Repeat voiding challenge was completed and patient voiding independently without any difficulties. Patient's mentation improving significantly and he is now alert and oriented x 3 and answering questions appropriately. He did have an isolated low-grade temp of 100.2 F and developed a mild nonproductive cough. Repeat chest x-ray was completed showing redemonstration of bibasilar opacity with linear appearance suggesting of linear atelectasis and less likely infiltrate. Patient empirically started on Levaquin 5-day course and encouraged to use incentive spirometry. Cepheid 4 Plex viral panel was completed negative for influenza A, influenza B, RSV, and COVID. Patient was accepted to [facility] for rehab. He is currently free from any complaints, questions, needs, or concerns. Patient's family was updated on discharge plans by licensed clinical social worker. Patient medically optimized for discharge to rehab facility at this time. Order placed for repeat BMP to be completed in 3 days with results to be sent to PCP and urologist for follow-up. Physical exam: Vital signs reviewed and stable. General: Nontoxic, no distress and appears stated age. Derm: Skin warm and dry, normal coloration for ethnicity. Head: Atraumatic, normocephalic and symmetric. Eyes: EOM's intact, no lid lag, and anicteric sclera Mouth: no lip lesions, mucus membranes moist Cardiovascular: regular rate and rhythm with normal S1S2, no murmur, positive posterior tibial pulses bilaterally, and cap refill < 2 seconds. Lungs: Respirations even, regular, and unlabored on room air. Lungs CTA bilaterally, no rhonchi, no rales, no wheezing, and no accessory muscle usage. Abdominal: soft, nontender to palpation, no guarding, no appreciable organomegaly Ext: No gross muscle atrophy, no edema, no contractures. Movement and sensation intact. Patient moving all extremities independently, difficulty following commands secondary to confusion/delirium. Neuro/Psych: Speech aphasic at baseline, face symmetrical. Patient alert and oriented to person only, more awake and answering more yes/no questions and more cooperative with care A total of 38 minutes of time were spent preparing this complex discharge summary. Pt was discharged on 10/12/2024 at 10:48 AM. Patient was seen independently by Nurse Practitioner. This document was prepared using [employer] dictation software. Please allow for errors in men's swim coach while rare they do occur. Elias Peterson NP rendered care for this patient independently, reviewed the findings and plan as documented in the note above. I did not physically speak with or examine the patient on this date. Patient Condition at Discharge: Stable Plan - Discharge Summary Discharge Rx Participant: No New Discharge Prescriptions: New Tamsulosin [Flomax] 0.4 mg PO PC-SUPPER 30 Days #30 cap Levofloxacin [Levaquin] 500 mg PO DAILY 4 Days #4 tab QUEtiapine [SEROquel] 25 mg PO HS 30 Days #30 tab Acetaminophen [Tylenol Arthritis] 650 mg PO Q4H PRN #30 tab PRN Reason: Pain Lidocaine 4% Patch 1 patch TOPICAL DAILY #30 patch Discharge Medication List Acetaminophen [Tylenol Arthritis] 650 mg PO Q4H PRN #30 tab 10/12/24 [Rx] Levofloxacin [Levaquin] 500 mg PO DAILY 4 Days #4 tab 10/12/24 [Rx] Lidocaine 4% Patch 1 patch TOPICAL DAILY #30 patch 10/12/24 [Rx] QUEtiapine [SEROquel] 25 mg PO HS 30 Days #30 tab 10/12/24 [Rx] Tamsulosin [Flomax] 0.4 mg PO PC-SUPPER 30 Days #30 cap 10/12/24 [Rx] Follow up Appointment(s)/Referral(s): Timur Ferreira DO [Primary Care Provider] - 1-2 days Major Guevara MD [STAFF PHYSICIAN] - 1 Week Ambulatory/Diagnostic Orders: Basic Metabolic Panel [LAB.AMB] Time Frame: 3 Days, Location: None Selected Patient Instructions/Handouts: Acute Kidney Injury (DC), Kidney Stones (DC), Encephalopathy (DC) Activity/Diet/Wound Care/Special Instructions: Please continue use of incentive spirometry. Discharge Disposition: TRANSFER TO SNF/ECF
[2024-10-12] MEDS: KETOROLAC 15 MG/ML 1 ML VIAL IVP STA (11:24)
[2024-10-12] MEDS: LEVOFLOXACIN 750MG-D5W PMX 750 MG in DEXTROSE/WATER 1 150ML.BAG IVPB ONE (11:52)
--- NOTE | 2024-10-12 12:36 | XR ---
EXAMINATION TYPE: XR chest 1V portable DATE OF EXAM: 10/12/2024 12:23 PM COMPARISON: Chest radiographs from 10/09/2024 TECHNIQUE: XR chest 1V portable Portable AP radiograph of the chest. CLINICAL INDICATION:Male, 84 years old with history of isolated temp, new cough; FINDINGS: Patient is rotated which limits evaluation. Lungs/Pleura: No pleural effusion or pneumothorax. Bibasilar patchy airspace opacities with linear ap pearance redemonstrated. Pulmonary vascularity: Unremarkable. Heart/mediastinum: Cardiomediastinal silhouette is unremarkable. Musculoskeletal: No acute osseous pathology. IMPRESSION: Redemonstration of bibasilar patchy airspace opacities with linear appearance suggesting linear atele ctasis versus less likely infiltrates. [facility], , 10/12/2024 12:33 PM
[2024-10-12 12:41] LABS: RSV Not Detected (Not Detectd)
[2024-10-12] MEDS: LIDOCAINE 4% PATCH TOPICAL SCH (12:43)
[2024-10-12 13:19] VITALS: BP 148/87; PULSE 72; TEMP 99.2
== END 2024-10-12 15:09 | DRG 693 ==
LOC: EC 18:31 → 5NMEDONC 10-10 00:14 → OBSVTOIN 10-10 00:15 → 5NMEDONC 10-10 06:12
PROVIDERS: ADMIT Internal Medicine; ATTEND Internal Medicine
DX: N13.2 Hydronephrosis with renal and ureteral calculous obstruction (principal); G93.41 Metabolic encephalopathy; E87.20 Acidosis, unspecified; I69.111 Memory deficit following nontraumatic intracerebral hemorrhage; J98.11 Atelectasis; I69.120 Aphasia following nontraumatic intracerebral hemorrhage; I44.0 Atrioventricular block, first degree; M54.50 Low back pain, unspecified; W19.XXXA Unspecified fall, initial encounter; R79.1 Abnormal coagulation profile; R29.6 Repeated falls; N17.9 Acute kidney failure, unspecified; R33.9 Retention of urine, unspecified; E83.42 Hypomagnesemia; R45.1 Restlessness and agitation; Z87.891 Personal history of nicotine dependence; Z79.899 Other long term (current) drug therapy
CPT/HCPCS: 36415; 70450; 71045; 71046; 72131; 76770; 80048; 80053; 81001; 83735; 84443; 84484; 85025; 85027; 85610; 85730; 87636; 93005; 96361; 96372; 96374; 96375; 96376; 99285